=== PATIENT | female | born 1945 | race Caucasian/White ===

== ENCOUNTER → 2019-12-21 09:17 | Outpatient (BNVA) | payer MEDICARE, SELFPAY | PROVIDERS: PCP Physician Assistant; Referring Provider Physician Assistant; Visit Provider Internal Medicine | DX: J44.9 Chronic obstructive pulmonary disease, unspecified (principal); R09.02 Hypoxemia | CPT/HCPCS: 99212 ==

== ENCOUNTER → 2020-01-20 15:01 | Outpatient (BNVA) | payer MEDICARE, SELFPAY | PROVIDERS: PCP Physician Assistant; Visit Provider Internal Medicine | DX: J41.0 Simple chronic bronchitis (principal); F17.210 Nicotine dependence, cigarettes, uncomplicated; Z79.899 Other long term (current) drug therapy; Z99.81 Dependence on supplemental oxygen | CPT/HCPCS: Q3014 ==

== ENCOUNTER 2020-03-03 08:56 | Outpatient (REF) | payer MEDICARE, SELFPAY ==
[2020-03-03 11:27] LABS: MANUAL DIFF FLAG NO
[2020-03-03 11:49] LABS: Basophils Percent Auto 0.5 % (0-2); Eosinophils Absolute Auto 0.1 X10*3/uL (0.0-0.4); Eosinophils Percent Auto 0.9 % (0-4); Hematocrit 43.6 % (37-47); Hemoglobin 14.2 g/dl (12.0-16.0); Imm Gran Abs Auto 0.04 X10*3/uL (0.00-0.03); Imm Gran Pct Auto 0.5 % (0.0-0.4); Lymphocytes Absolute Auto 1.9 X10*3/uL (1.2-4.9); Lymphocytes Percent Auto 23.6 % (20-40); Mean Corpuscular HGB Conc 32.6 g/dl (31.0-35.0); Mean Corpuscular Hemoglobin 32.4 pg (27.0-33.0); Mean Corpuscular Volume 99.5 fL (80-98); Mean Platelet Volume 9.1 fL (9.4-12.3); Monocytes Absolute Auto 0.5 X10*3/uL (0.1-1.2); Monocytes Percent Auto 6.7 % (2-11); Neutrophils Absolute Auto 5.5 X10*3/uL (2.0-8.3); Neutrophils Percent Auto 67.8 % (45-73); Platelet Count 258 X10*3/uL (160-400); Red Blood Count 4.38 X10*6/uL (4.20-5.50); Red Cell Distribution Width 11.7 % (11.0-16.0); White Blood Count 8.1 X10*3/uL (4.8-10.8)
[2020-03-03 12:22] LABS: Alanine Aminotransferase 21 U/L (0-31); Albumin Level 4.6 g/dL (3.5-5.0); Alkaline Phosphatase 99 U/L (39-117); Anion Gap 14 (12-20); Aspartate Amino Transferase 21 U/L (5-31); Bilirubin Total 0.5 mg/dL (0.0-1.0); Blood Urea Nitrogen 10 mg/dL (9-16); Calcium 9.1 mg/dL (8.4-10.2); Carbon Dioxide 32 mmol/L (22-29); Chloride 93 mmol/L (96-108); Cholesterol 177 mg/dL; Estimated Glomerular Filt Rate > 60; Glucose Fasting 122 mg/dL (60-99); HDL Cholesterol 81 mg/dL; LDL Cholesterol Calculated 83 mg/dl; Potassium 4.4 mmol/l (3.3-5.1); Sodium 135 mmol/L (135-145); Total Protein 7.5 g/dL (6.5-8.0); Triglycerides 67 mg/dL
== END 2020-03-03 08:57 | disposition home or self-care (01) ==
LOC: HO.HMGCLDS 08:56
PROVIDERS: PCP Physician Assistant; Visit Provider Physician Assistant
DX: I10 Essential (primary) hypertension (principal); D17.1 Benign lipomatous neoplasm of skin and subcutaneous tissue of trunk
CPT/HCPCS: 36415; 80053; 80061; 85025

== ENCOUNTER → 2020-03-22 09:48 | Outpatient (BNVA) | payer MEDICARE, SELFPAY | PROVIDERS: PCP Physician Assistant; Visit Provider Surgery | DX: L72.0 Epidermal cyst (principal) | CPT/HCPCS: 99202 ==

== ENCOUNTER 2020-03-29 13:19 | Outpatient (REF) | payer MEDICARE, SELFPAY ==
[2020-03-29 13:26] VITALS: BP 157/80; PULSE 95; RESP 24; TEMP 36.9; O2SAT 97
[2020-03-29 13:30] VITALS: BMI 30.2
[2020-03-29 14:41] VITALS: BP 161/85; PULSE 65; RESP 24; O2SAT 96
--- NOTE | 2020-03-29 14:44 | P.OP_ITS ---
Operative Note Operative Note Date of Service: 03/29/20 Narrative: Preop diagnosis: Epidermal cyst x2 on the back Postop diagnosis: The same Procedure done: Excision of epidermal cyst x2 on the back Surgeon: George Suarez MD The patient is a 75-year-old female referred to me in the office for epidermal cysts on the back. She had 2 cysts, one about 2 cm in size and the other about 3 cm in size on the upper back. She wanted to proceed with excision. She understood the technique of excision under local anesthesia. He was aware of the risks, benefits, and alternatives. She was brought to the minor procedure room and placed in prone position. The area of the cysts were prepped and draped. Lidocaine 1% was used for local anesthesia. I made an incision on the skin transversely overlying the cyst on the upper back near the midline using a blade 15. This was carried down to full- thickness of the skin and subcutaneous fat until the cyst capsule was c visualized. I sharply dissected the cyst capsule off of the rest of subcutaneous layer circumferentially with Metzenbaum scissors as well as the blade 15 until it was completely delivered. This was sent as a specimen. This cyst was about 3 cm in diameter. I irrigated the area of excision and closed the incision with full-thickness nylon 3 -0 interrupted sutures. I then proceeded to infiltrate the area of the 2nd cyst which was a little more to the left. This incision was made using blade 15. I carried down the incision through the full-thickness of the skin and subcutaneous fat until the cyst capsule was visualized. I sharply dissected the cyst capsule off of the subcutaneous layer circumferentially using blade 15 with Metzenbaum scissors until this was delivered and this was sent as specimen. This cyst was about 2 cm in diameter. I closed the incision with full-thickness nylon 3-0 interrupted sutures. Dressings were then applied on both excision sites. The patient tolerated well. No complication noted. Estimated blood loss was about 1 cc. The patient was discharged from the minor procedure room and was given wound care instructions. She will see me in the office for a follow-up to remove the sutures in about 2 weeks.
== END 2020-03-29 13:20 | disposition home or self-care (01) ==
LOC: HO.MS 13:19
PROVIDERS: PCP Physician Assistant; Visit Provider Surgery
PROC: (CPT 11403; principal; 2020-03-29 13:40)
DX: L72.0 Epidermal cyst (principal); J44.9 Chronic obstructive pulmonary disease, unspecified; F17.210 Nicotine dependence, cigarettes, uncomplicated; Z88.1 Allergy status to other antibiotic agents
CPT/HCPCS: 11403 ×2; 88304

== ENCOUNTER → 2020-04-12 09:59 | Outpatient (BNVA) | payer MEDICARE, SELFPAY | PROVIDERS: PCP Physician Assistant; Visit Provider Surgery | DX: Z48.817 Encounter for surgical aftercare following surgery on the skin and subcutaneous tissue (principal); Z87.2 Personal history of diseases of the skin and subcutaneous tissue | CPT/HCPCS: 99212 ==

== ENCOUNTER → 2020-04-19 09:24 | Outpatient (BNVA) | payer MEDICARE, SELFPAY | PROVIDERS: PCP Physician Assistant; Visit Provider Internal Medicine | DX: J41.0 Simple chronic bronchitis (principal); J30.9 Allergic rhinitis, unspecified; R09.02 Hypoxemia; F17.200 Nicotine dependence, unspecified, uncomplicated; Z71.6 Tobacco abuse counseling; Z79.51 Long term (current) use of inhaled steroids | CPT/HCPCS: 99212 ==

== ENCOUNTER 2020-05-17 07:45 | Outpatient (REF) | payer MEDICARE, SELFPAY ==
--- NOTE | ~2020-05-17 | US_ITS ---
EXAMINATION: US ABDOMEN COMPLETE CLINICAL INFORMATION: Abdominal pain. COMPARISON: Ultrasound abdominal aorta 10/08/2019 and 10/22/2018. X-ray abdomen 03/23/2019. CT abdomen 09/08/2017. X-ray KUB 09/08/2017. TECHNIQUE: Real-time imaging of the abdominal viscera. FINDINGS: PANCREAS: Not well visualized. The main pancreatic duct is upper normal in size measuring 3 mm. ABDOMINAL AORTA: There is evidence of atherosclerotic disease. There are 2 areas of ectasia of the distal abdominal aorta measuring maximum 2.6 x 3.2 cm. INFERIOR VENA CAVA: Normal. LIVER: Normal. The liver is normal in size. The liver contour is normal. Parenchymal echogenicity is normal. No focal hepatic lesion. There is no intrahepatic biliary duct dilatation seen. GALLBLADDER: Gallbladder is normal in size. There is echogenic bile seen in the gallbladder. No gallstones are seen. Gallbladder wall is normal. There is no pericholecystic fluid. COMMON BILE DUCT: Normal in caliber measuring 0.2 cm in diameter. RIGHT KIDNEY: There are multiple cysts, largest a complex cyst in the midpole with several septations measuring 2.6 x 2.2 x 2.5 cm. No hydronephrosis or renal calculi. The kidney measures 11.1 cm in maximum dimension. LEFT KIDNEY: There are multiple cysts. Largest measures 2.7 x 2.2 x 2.5 cm in the lower pole and is slightly complex with small focus of wall calcification thickening. No hydronephrosis or renal calculi. The kidney measures 11.6 cm in maximum dimension. SPLEEN: Normal. The spleen measures 10.2 cm in maximum dimension. FREE FLUID: None. US/US abdomen complete IMPRESSION: Bilateral renal cysts. Limited visualization of the pancreas. Atherosclerotic disease with mild dilatation of the distal abdominal aorta.
== END 2020-05-17 07:46 | disposition home or self-care (01) ==
LOC: HO.US 07:45
PROVIDERS: Visit Provider Internal Medicine
DX: R10.13 Epigastric pain (principal)
CPT/HCPCS: 76700

== ENCOUNTER 2020-10-10 07:01 | Outpatient (REF) | payer MEDICARE, SELFPAY ==
[2020-10-10 11:44] LABS: Hematocrit 41.5 % (37-47); Hemoglobin 13.2 g/dl (12.0-16.0); Mean Corpuscular HGB Conc 31.8 g/dl (31.0-35.0); Mean Corpuscular Hemoglobin 32.3 pg (27.0-33.0); Mean Corpuscular Volume 101.5 fL (80-98); Mean Platelet Volume 9.2 fL (9.4-12.3); Platelet Count 266 X10*3/uL (160-400); Red Blood Count 4.09 X10*6/uL (4.20-5.50); Red Cell Distribution Width 11.9 % (11.0-16.0); White Blood Count 9.8 X10*3/uL (4.8-10.8)
[2020-10-10 12:14] LABS: Creatinine Urine 83.09 mg/dL; Microalbum/Creatinine Ratio Ur 51.7 ug/mg cr
[2020-10-10 12:44] LABS: Alanine Aminotransferase 16 U/L (0-31); Albumin Level 4.3 g/dL (3.5-5.0); Alkaline Phosphatase 81 U/L (39-117); Anion Gap 11 (12-20); Aspartate Amino Transferase 17 U/L (5-31); Bilirubin Total 0.7 mg/dL (0.0-1.0); Blood Urea Nitrogen 9 mg/dL (9-16); Calcium 8.8 mg/dL (8.4-10.2); Carbon Dioxide 34 mmol/L (22-29); Chloride 96 mmol/L (96-108); Cholesterol 153 mg/dL; Estimated Glomerular Filt Rate > 60; Glucose Fasting 102 mg/dL (60-99); HDL Cholesterol 75 mg/dL; LDL Cholesterol Calculated 63 mg/dl; Potassium 4.3 mmol/L (3.3-5.1); Sodium 137 mmol/L (135-145); Total Protein 6.9 g/dL (6.5-8.0); Triglycerides 78 mg/dL
[2020-10-10 14:25] LABS: Estimated Average Glucose 120 mg/dL; Hemoglobin A1c % 5.8 %
== END 2020-10-10 07:02 | disposition home or self-care (01) ==
LOC: HO.HMGCLDS 07:01
PROVIDERS: PCP Physician Assistant; Visit Provider Physician Assistant
DX: I10 Essential (primary) hypertension (principal); E78.00 Pure hypercholesterolemia, unspecified
CPT/HCPCS: 36415; 80053; 80061; 82043; 83036; 84443; 85027

== ENCOUNTER → 2020-10-23 09:20 | Outpatient (BNVA) | payer MEDICARE, SELFPAY | PROVIDERS: PCP Physician Assistant; Visit Provider Internal Medicine | DX: J41.0 Simple chronic bronchitis (principal); J30.9 Allergic rhinitis, unspecified; R09.02 Hypoxemia; F17.210 Nicotine dependence, cigarettes, uncomplicated | CPT/HCPCS: 99212 ==

== ENCOUNTER → 2020-12-06 10:20 | Outpatient (BNVA) | payer MEDICARE, SELFPAY | PROVIDERS: PCP Physician Assistant; Visit Provider Internal Medicine | DX: J41.0 Simple chronic bronchitis (principal); J30.9 Allergic rhinitis, unspecified; R09.02 Hypoxemia; F17.200 Nicotine dependence, unspecified, uncomplicated | CPT/HCPCS: 99212 ==

== ENCOUNTER 2020-12-13 09:38 | Day surgery (SDC) | payer MEDICARE, SELFPAY ==
[2020-12-07 09:18] VITALS: BMI 30.4
--- NOTE | 2020-12-12 13:28 | HO.ANESPROP2 ---
Documented by User: Taylor Maria NP 12/12/20 13:36 HPI - Anesthesia Eval Consult details Narrative: 75yo F for Upper Endoscopy and Colonoscopy O2 dep 1-2L/min Per pulmo, stable for colonscopy PMFSH Active Problems Active Problems: All Active Problems (Updated 12/06/20 @ 16:14 by Ivy Portillo, RN) Lipoma of back (Acute) HTN (hypertension) (Acute) Scalp itch (Acute) Otitis externa (Acute) Degenerative disc disease, lumbar (Acute) Colon cancer screening (Acute) Positive colorectal cancer screening using Cologuard test (Acute) Lumbar disc disease (Acute) Smoker (Acute) Allergic rhinitis (Acute) High cholesterol (Acute) Intertrigo (Acute) Epidermal cyst (Acute) Exercise hypoxemia (Acute) COPD (chronic obstructive pulmonary disease) (Acute) Past Medical History Medical History AAA (abdominal aortic aneurysm) Allergic rhinitis Anxiety COPD (chronic obstructive pulmonary disease) Epidermal cyst Exercise hypoxemia High cholesterol HTN (hypertension) Intertrigo Neck pain Oxygen dependent Smoker Family History Family History Father Stroke Mother Stroke Brother Colon cancer Sister Diabetes High cholesterol Surgical History Surgical History (Updated 12/06/20 @ 16:14 by Ivy Portillo RN) History of bilateral cataract extraction History of esophagogastroduodenoscopy (EGD) History of hemorrhoidectomy Hx of colonoscopy Social History Social History Are you a primary physician primary care sports medicine to a significant other at home: No Do you presently have visiting nurse or other home services: No Alcohol intake: never Patient Tobacco Use Status: Current everyday Tobacco user Tobacco use type: Cigarette Cigarette Packs Per Day: 0.5 Cigarettes Per Day: 10.0 Years Smoked: ~ 50 Smoked in Last 30 Days: Yes Patient Interested in Nicotine Replacement: No Patient Given Instructions on How to Stop Smoking: No Second Hand Smoke Exposure: No Use of substances other than those prescribed or required for medical reasons: No Have you been hit, kicked, punched, or otherwise hurt by someone within the past year? If so, by whom?: No Are you DNR?: No Advance Directives: Yes Advance Directives Information Provided: Yes Advance Directives on File: Yes Advance Directives Date on File: 03/29/20 Recently lost weight without trying: No Eating poorly because of decreased appetite: No Nutrition Risks: No Nutritional Risk Patient : No Meds Allergies Allergy/AdvReac Type Severity Reaction Status Date / Time erythromycin base Allergy Severe Rash Verified 12/06/20 16:20 azithromycin AdvReac Severe Nausea Verified 12/06/20 16:20 Home Medications Medication Instructions Recorded Confirmed Last Taken Type cetirizine 10 mg tablet (Zyrtec) 10 mg PO DAILY 12/07/20 12/07/20 Unknown History Exam Exam Date and Time: December 12, 2020 1328 Height,Weight and Vital Signs: Height 5 ft Weight 70.76 kg Pertinent Lab Results Pertinent Lab Results: Laboratory Tests 10/10/20 10/10/20 07:08 07:08 WBC 9.8 Hgb 13.2 Hct 41.5 Plt Count 266 Sodium 137 Potassium 4.3 Chloride 96 Carbon Dioxide 34 H BUN 9 Creatinine 0.60 Narrative Narrative: US abdomen complete 05/2020 IMPRESSION: Bilateral renal cysts. Limited visualization of the pancreas. Atherosclerotic disease with mild dilatation of the distal abdominal aorta. Assessment and Plan Assessment Anesthesia Assessment: Chart Reviewed Documented by User: Sonya Johnson MD 12/13/20 11:19 [facility] Past Medical History Medical History AAA (abdominal aortic aneurysm) Allergic rhinitis Anxiety COPD (chronic obstructive pulmonary disease) Epidermal cyst Exercise hypoxemia High cholesterol HTN (hypertension) Intertrigo Neck pain Oxygen dependent Smoker Functional capacity: independent ambulation Patient : No Family History Family History Father Stroke Mother Stroke Brother Colon cancer Sister Diabetes High cholesterol Family history of problems with anesthesia: No Surgical History Surgical History (Updated 12/06/20 @ 16:14 by Ivy Portillo RN) History of bilateral cataract extraction History of esophagogastroduodenoscopy (EGD) History of hemorrhoidectomy Hx of colonoscopy History of Problems with Anesthesia: No Social History Social History Are you a primary physician primary care sports medicine to a significant other at home: No Do you presently have visiting nurse or other home services: No Alcohol intake: never Patient Tobacco Use Status: Current everyday Tobacco user Tobacco use type: Cigarette Cigarette Packs Per Day: 0.5 Cigarettes Per Day: 10.0 Years Smoked: ~ 50 Smoked in Last 30 Days: Yes Patient Interested in Nicotine Replacement: No Patient Given Instructions on How to Stop Smoking: No Second Hand Smoke Exposure: No Use of substances other than those prescribed or required for medical reasons: No Have you been hit, kicked, punched, or otherwise hurt by someone within the past year? If so, by whom?: No Are you DNR?: No Advance Directives: Yes Advance Directives Information Provided: Yes Advance Directives on File: Yes Advance Directives Date on File: 03/29/20 Recently lost weight without trying: No Eating poorly because of decreased appetite: No Nutrition Risks: No Nutritional Risk Patient : No Meds Allergies Allergy/AdvReac Type Severity Reaction Status Date / Time erythromycin base Allergy Severe Rash Verified 12/06/20 16:20 azithromycin AdvReac Severe Nausea Verified 12/06/20 16:20 Home Medications Medication Instructions Recorded Confirmed Last Taken Type cetirizine 10 mg tablet (Zyrtec) 10 mg PO DAILY 12/07/20 12/07/20 Unknown History Exam Airway Mallampati Class: II TM Dist: >3cm Neck ROM: Full Denture: Upper and Lower Heart: RRR Lungs: left little Assessment and Plan Final Anesthetic Review Family History of Problems with Anesthesia: No History of Problems with Anesthesia: No ASA Class: III Final Preanesthetic Review: No Changes in Pt Med Stat Patient Risk: Low Procedure Risk: Low Anesthetic Plan Anesthetic Plan: MAC: Disposition: Standard PACU
[2020-12-13 09:56] VITALS: BP 174/81; PULSE 96; RESP 18; TEMP 36.6; O2SAT 92
--- NOTE | 2020-12-13 10:18 | PC.NURSE ---
yellow results from [facility]
[2020-12-13] MEDS: Lactated Ringers 1,000 ML 50 ML IVCONT (10:35)
[2020-12-13] MEDS: Sodium Phosphate,Mono-Dibasic 133 ML ENEMA PR (10:35)
--- NOTE | 2020-12-13 11:27 | PC.NURSE ---
ls clear diminished at the bases nonproductive cough no sob noted pt on 1liter n/c aware of plan of care
[2020-12-13 12:51] VITALS: BP 160/70; PULSE 104; RESP 12; TEMP 37.2; O2SAT 93
--- NOTE | 2020-12-13 13:01 | PM.OP ---
Brief Operative Note Date of Service: 12/13/20 Pre-op diagnosis: Abdominal discomfort, + Cologuard Post-op diagnosis: other (Duodenitis, Gastritis, Hiatal hernia, R/O Ecahvarria's, Diverticulosis, Int/Ext Hemorrhoids) Procedure: EGD with biopsies, Colonoscopy to the cecum and TI Surgeon: Holland Herrera Anesthesia: MAC Was an Tower Air Traffic Control Specialist used for this Procedure?: No Estimated blood loss (mL): 3.0 Pathology: other (A. Gastric antrum B. EG Junction at 34cm) Condition: stable Disposition: PACU
[2020-12-13 13:06] VITALS: BP 161/62; PULSE 101; RESP 18; O2SAT 95
--- NOTE | 2020-12-13 14:28 | OP_ITS ---
SURGEON: Holland Herrera MD INDICATIONS: The patient presents for evaluation of abdominal discomfort and positive Cologuard test. Full consent has been obtained from her for both procedures, including risks of bleeding and perforation. PREOPERATIVE DIAGNOSIS: POSTOPERATIVE DIAGNOSIS: PROCEDURE PERFORMED: Esophagogastroduodenoscopy with biopsies, and colonoscopy to the cecum and terminal ileum. ESTIMATED BLOOD LOSS: COMPLICATIONS: ANESTHESIA: Monitored anesthesia care. ASSISTANTS: SPECIMENS: PREOPERATIVE DIAGNOSES: Abdominal pain and positive Cologuard test. POSTOPERATIVE DIAGNOSES: Abdominal pain and positive Cologuard test, hiatal hernia, rule out Echavarria's esophagus, gastritis and duodenitis, diverticulosis, internal and external hemorrhoids, and colon polyps not removed nor biopsied. DESCRIPTION OF PROCEDURE: The patient was placed in the left lateral decubitus position. The Olympus video gastroscope was passed in the posterior oropharynx and upper esophagus under direct vision. The scope was passed slowly into the distal esophagus. The gastroesophageal junction appeared at 34 cm. At this level, was evidence of some changes consistent with Echavarria's esophagus with 1 or 2 cm long projections of Echavarria's appearing mucosa. There was no sign of any esophagitis, ulceration, nor mass. There was a moderate-sized hiatal hernia. The scope was advanced to pylorus and duodenum was cannulated the descending portion. The second and third portions of duodenum appeared normal. The duodenal bulb had some duodenitis with erosions. There was no ulceration nor mass. The scope was withdrawn back into the stomach. The gastric antrum had some areas of edema and erythema, but no erosions or ulceration. There was good peristalsis. Biopsies were obtained from the gastric antrum. The scope was retroflexed visualizing the proximal stomach carefully, which appeared normal, without any sign of mass or ulceration. The scope was straightened out and withdrawn back into the esophagus. Biopsies were obtained at 34 cm. Proximal to this, esophageal mucosa appeared normal. The scope was withdrawn from the patient. She was turned around for colonoscopy. The digital rectal exam revealed no abnormalities. The Olympus video pediatric colonoscope was entered into the rectum and advanced easily to the cecum. Once in the cecum, I did identify normal-appearing cecal pouch with appendiceal orifice and a normal-appearing ileocecal valve. The terminal ileum was cannulated and appeared normal. The scope was withdrawn back in the colon. The entire cecum and ileocecal valve appeared normal. The scope was then slowly withdrawn assessing all mucosal surfaces carefully. There was a fair amount of liquid stool in different parts of the colon, which were all irrigated and suctioned away resulting in a very good prep. I did visualize some small less than 10 mm polyps in various areas, which were not biopsied nor removed given her overall condition and age. I did not visualize any significant lesions whatsoever nor anything suspicious. There was a moderate amount of sigmoid diverticulosis. In the rectum, scope was retroflexed visualizing internal hemorrhoids. The scope was straightened out and withdrawn from the patient. Of note, she does have external hemorrhoids as well. The patient tolerated both procedures well and was returned to the recovery area in stable condition. IMPRESSION: 1. Hiatal hernia, gastroesophageal reflux, rule out Echavarria's esophagus. 2. Duodenitis and gastritis. 3. Diverticulosis. 4. Internal and external hemorrhoids. 5. Colon polyps, not resected nor biopsied. PLAN: The results of the biopsies will be checked. Given her endoscopic findings and symptoms, I shall start her on omeprazole 40 mg daily. Given her age and condition, I do not think she will need any further screening colonoscopies. She was advised to continue her bowel regimen so as to avoid constipation. She will see me again on a p.r.n. basis. MD MAMTA Brantley/STACY / [phone] MTDD
--- NOTE | 2020-12-13 15:11 | HO.POSTANES ---
Post Anesthesia Evaluation Post Anesthesia Evaluation Vital Signs: Vital Signs Temp Pulse Resp BP Pulse Ox 12/13/20 13:06 101 H 18 161/62 H 95 12/13/20 12:51 98.9 F 104 H 12 160/70 H 93 12/13/20 09:56 98 F 96 18 174/81 H 92 Anesthesia: Monitored Mental Status: Awake Pain Control: Satisfactory Nausea/Vomiting: None Hydration: Adequate Anesthesia-Related Issues: No Anes. Related Issues
== END 2020-12-13 13:55 | disposition home or self-care (01) ==
PROVIDERS: PCP Physician Assistant; Visit Provider Internal Medicine
PROC: (CPT 45378; principal; 2020-12-13 11:10)
DX: R19.5 Other fecal abnormalities (principal); Z80.0 Family history of malignant neoplasm of digestive organs; K63.5 Polyp of colon; K57.30 Diverticulosis of large intestine without perforation or abscess without bleeding; K64.8 Other hemorrhoids; K64.4 Residual hemorrhoidal skin tags; K29.50 Unspecified chronic gastritis without bleeding; K21.9 Gastro-esophageal reflux disease without esophagitis; K29.80 Duodenitis without bleeding; K44.9 Diaphragmatic hernia without obstruction or gangrene; I10 Essential (primary) hypertension; J44.9 Chronic obstructive pulmonary disease, unspecified; Z99.81 Dependence on supplemental oxygen; Z79.899 Other long term (current) drug therapy; F17.210 Nicotine dependence, cigarettes, uncomplicated
CPT/HCPCS: 45378; 43239; 88305; 88342

== ENCOUNTER 2021-01-19 07:21 | Outpatient (REF) | payer MEDICARE, SELFPAY ==
[2021-01-19 11:52] LABS: Hematocrit 41.5 % (37.0-47.0); Hemoglobin 13.1 g/dl (12.0-16.0); Mean Corpuscular HGB Conc 31.6 g/dl (31.0-35.0); Mean Corpuscular Hemoglobin 32.3 pg (27.0-33.0); Mean Corpuscular Volume 102.2 fL (80.0-98.0); Mean Platelet Volume 9.3 fL (9.4-12.3); Platelet Count 248 X10*3/uL (160-400); Red Blood Count 4.06 X10*6/uL (4.20-5.50); Red Cell Distribution Width 11.4 % (11.0-16.0); White Blood Count 7.6 X10*3/uL (4.8-10.8)
[2021-01-19 12:07] LABS: Alanine Aminotransferase 18 U/L (0-31); Albumin Level 4.4 g/dL (3.5-5.0); Alkaline Phosphatase 82 U/L (39-117); Anion Gap 14 (12-20); Aspartate Amino Transferase 22 U/L (5-31); Bilirubin Total 0.5 mg/dL (0.0-1.0); Blood Urea Nitrogen 6 mg/dL (9-16); Calcium 9.5 mg/dL (8.4-10.2); Carbon Dioxide 35 mmol/L (22-29); Chloride 95 mmol/L (96-108); Cholesterol 168 mg/dL; Estimated Glomerular Filt Rate > 60; Glucose Fasting 102 mg/dL (60-99); HDL Cholesterol 71 mg/dL; LDL Cholesterol Calculated 83 mg/dl; Potassium 4.3 mmol/L (3.3-5.1); Sodium 140 mmol/L (135-145); Total Protein 7.2 g/dL (6.5-8.0); Triglycerides 71 mg/dL
[2021-01-19 12:31] LABS: TSH reflex Free T4 0.49 uIU/mL (0.32-4.0)
== END 2021-01-19 07:22 | disposition home or self-care (01) ==
LOC: HO.HMGCLDS 07:21
PROVIDERS: PCP Physician Assistant; Visit Provider Physician Assistant
DX: I10 Essential (primary) hypertension (principal)
CPT/HCPCS: 36415; 80053; 80061; 84443; 85027

== ENCOUNTER → 2021-05-01 09:27 | Outpatient (BNVA) | payer MEDICARE, SELFPAY | PROVIDERS: PCP Physician Assistant; Visit Provider Internal Medicine | DX: J30.9 Allergic rhinitis, unspecified (principal); J41.0 Simple chronic bronchitis; R09.02 Hypoxemia; Z99.81 Dependence on supplemental oxygen | CPT/HCPCS: 99212 ==

== ENCOUNTER 2021-05-23 08:22 | Outpatient (REF) | payer MEDICARE, SELFPAY ==
[2021-05-23 11:34] LABS: Hematocrit 42.6 % (37.0-47.0); Hemoglobin 13.5 g/dl (12.0-16.0); Mean Corpuscular HGB Conc 31.7 g/dl (31.0-35.0); Mean Corpuscular Hemoglobin 32.5 pg (27.0-33.0); Mean Corpuscular Volume 102.4 fL (80.0-98.0); Mean Platelet Volume 9.2 fL (9.4-12.3); Platelet Count 255 X10*3/uL (160-400); Red Blood Count 4.16 X10*6/uL (4.20-5.50); Red Cell Distribution Width 11.4 % (11.0-16.0); White Blood Count 7.6 X10*3/uL (4.8-10.8)
[2021-05-23 12:02] LABS: Alanine Aminotransferase 19 U/L (0-31); Albumin Level 4.2 g/dL (3.5-5.0); Alkaline Phosphatase 85 U/L (39-117); Anion Gap 12 (12-20); Aspartate Amino Transferase 21 U/L (5-31); Bilirubin Total 0.6 mg/dL (0.0-1.0); Blood Urea Nitrogen 9 mg/dL (9-16); Calcium 9.2 mg/dL (8.4-10.2); Carbon Dioxide 33 mmol/L (22-29); Chloride 95 mmol/L (96-108); Cholesterol 163 mg/dL; Estimated Glomerular Filt Rate > 60; Glucose Fasting 108 mg/dL (60-99); HDL Cholesterol 71 mg/dL; LDL Cholesterol Calculated 77 mg/dl; Potassium 4.7 mmol/L (3.3-5.1); Sodium 135 mmol/L (135-145); Triglycerides 79 mg/dL
[2021-05-23 12:06] LABS: TSH reflex Free T4 0.56 uIU/mL (0.32-4.0)
[2021-05-23 12:11] LABS: Vitamin B12 223 pg/mL (200-900)
== END 2021-05-23 08:23 | disposition home or self-care (01) ==
LOC: HO.HMGCLDS 08:22
PROVIDERS: Visit Provider Physician Assistant
DX: I10 Essential (primary) hypertension (principal); D75.89 Other specified diseases of blood and blood-forming organs
CPT/HCPCS: 36415; 80053; 80061; 82607; 82746; 84443; 85027

== ENCOUNTER → 2021-11-06 09:14 | Outpatient (BNVA) | payer MEDICARE, SELFPAY | PROVIDERS: PCP Physician Assistant; Visit Provider Internal Medicine | DX: J41.0 Simple chronic bronchitis (principal); R09.02 Hypoxemia; F17.210 Nicotine dependence, cigarettes, uncomplicated | CPT/HCPCS: 99212 ==

== ENCOUNTER → 2022-05-14 09:19 | Outpatient (BNVA) | payer MEDICARE, SELFPAY | PROVIDERS: PCP Physician Assistant; Visit Provider Internal Medicine | DX: J41.0 Simple chronic bronchitis (principal); R09.02 Hypoxemia; J30.9 Allergic rhinitis, unspecified; F17.210 Nicotine dependence, cigarettes, uncomplicated | CPT/HCPCS: 99212 ==

== ENCOUNTER 2022-05-24 08:35 | Outpatient (REF) | payer MEDICARE, SELFPAY ==
[2022-05-24 12:08] LABS: Hematocrit 41.5 % (37.0-47.0); Hemoglobin 13.2 g/dl (12.0-16.0); Mean Corpuscular HGB Conc 31.8 g/dl (31.0-35.0); Mean Corpuscular Hemoglobin 32.8 pg (27.0-33.0); Mean Platelet Volume 9.5 fL (9.4-12.3); Platelet Count 237 X10*3/uL (160-400); Red Blood Count 4.03 X10*6/uL (4.20-5.50); Red Cell Distribution Width 11.7 % (11.0-16.0); White Blood Count 6.7 X10*3/uL (4.8-10.8)
[2022-05-24 12:18] LABS: Alanine Aminotransferase 12 U/L (0-31); Albumin Level 4.2 g/dL (3.5-5.0); Alkaline Phosphatase 94 U/L (39-117); Anion Gap 11 (12-20); Aspartate Amino Transferase 17 U/L (5-31); Bilirubin Total 0.5 mg/dL (0.0-1.0); Blood Urea Nitrogen 11 mg/dL (9-16); Calcium 9.3 mg/dL (8.4-10.2); Carbon Dioxide 37 mmol/L (22-29); Chloride 96 mmol/L (96-108); Cholesterol 180 mg/dL; Estimated Glomerular Filt Rate > 60; Glucose Fasting 119 mg/dL (60-99); HDL Cholesterol 80 mg/dL; LDL Cholesterol Calculated 90 mg/dl; Potassium 4.3 mmol/L (3.3-5.1); Sodium 140 mmol/L (135-145); Total Protein 6.8 g/dL (6.5-8.0); Triglycerides 51 mg/dL
[2022-05-24 12:41] LABS: Creatinine Urine 98.87 mg/dL; Microalbum/Creatinine Ratio Ur 68.7 ug/mg cr
== END 2022-05-24 08:36 | disposition home or self-care (01) ==
LOC: HO.HMGCLDS 08:35
PROVIDERS: PCP Physician Assistant; Visit Provider Physician Assistant
DX: E78.00 Pure hypercholesterolemia, unspecified (principal); I10 Essential (primary) hypertension
CPT/HCPCS: 36415; 80053; 80061; 82043; 85027

== ENCOUNTER 2022-11-12 09:02 | Outpatient (AMB) | payer MEDICARE, SELFPAY ==
[2022-11-12 09:14] VITALS: BP 160/62; PULSE 87; O2SAT 93; BMI 29.7
--- NOTE | 2022-11-12 09:14 | A.OFFVIS_ITS ---
Intake Vital Signs 11/12/22 09:14 Height 5 ft Weight 152 lb BMI 29.7 BP 160/62 H Blood Pressure Location Lt brachial Position Sitting Pulse 87 Pulse Source Pulse Oximeter Pulse Oximetry (%) 93 Oxygen Delivery Method Nasal Cannula Oxygen Flow Rate 1 Intake Visit Reasons: COPD follow-up Intake Note: pt is here for follow up and states she is doing okay some phelgm. Hand Singer Required: No Allergies erythromycin base Allergy (Severe, Verified 11/12/22 09:25) Rash azithromycin Adverse Reaction (Severe, Verified 11/12/22 09:25) Nausea omeprazole Adverse Reaction (Intermediate, Verified 11/12/22 09:25) balance issues / dizziness Medication List - Last Reconciled 11/12/22 by Sherley Mancini MD carisoprodol (Soma) 350 mg PO TID PRN 30 days cetirizine (Zyrtec) 10 mg PO DAILY lisinopril 20 mg PO DAILY 90 days simvastatin 40 mg PO QPM Ventolin HFA 90 mcg/actuation (albuterol sulfate) 2 puffs inhalation Q4-6H PRN NS Do you need a note to return to daycare/school/sports/work: No HPI COPD follow-up HPI Details This 77 years old female with COPD and persistent smoking, being treated for hypoxemia on continuous, O2 2 L/minute comes after 6 months for follow-up. She has remained quite stable. Has used Ventolin only about 2 or 3 times in the last 6 months. Smokes 10 cigarettes a day, Gets short of breath on minimal exertion so she stays mostly in the house. She does drive the car just to go to local stores. She gets nasal congestion and increased cough only in response to change in the weather and outside allergies. Luckily she has had no infection. [facility] Medical History Oxygen dependent AAA (abdominal aortic aneurysm) Anxiety Neck pain HTN (hypertension) Smoker Allergic rhinitis High cholesterol Intertrigo Epidermal cyst Exercise hypoxemia COPD (chronic obstructive pulmonary disease) Surgical History History of esophagogastroduodenoscopy (EGD) Hx of colonoscopy History of bilateral cataract extraction History of hemorrhoidectomy Family History Father Stroke Mother Stroke Brother Colon cancer Sister Diabetes High cholesterol Social History Housing: House Are you a primary health care coordinator to a significant other at home: No Do you presently have visiting nurse or other home services: No Alcohol intake: never Patient Tobacco Use Status: Current everyday Tobacco user Tobacco use type: Cigarette Cigarette Packs Per Day: 0.5 Cigarettes Per Day: 10.0 Years Smoked: ~ 50 e-Cigarette/Vaping Use: Never Used Second Hand Smoke Exposure: No Advance Directives Date on File: 03/29/20 Current occupational status: disabled Cognitive needs: No Hearing needs: Yes (bilateral hearing loss) Vision needs: No Review of Systems Const All systems reviewed & are unremarkable except as noted in HPI and below Eyes Reports no additional complaints ENT Reports nasal congestion (Mild intermittent) and Reports nasal discharge Card Reports no additional complaints Resp Reports as per HPI GI Reports no additional complaints Reports no additional complaints Musc Reports back pain (Mild chronic) Skin/Breast Reports system reviewed and no additional complaints, except as documented Neuro Reports no additional complaints Psych Reports no additional complaints Physical Exam Const General: comfortable, no acute distress, alert and awake Orientation/consciousness: patient oriented x3 HEENT Head: Yes normal to inspection General nose exam: No nasal polyps present and No nasal discharge present Face and sinus: Yes sinuses nontender Mouth: oropharynx normal Throat: Yes posterior oropharynx normal Eyes General: appearance normal, both eyes and all related structures Neck Neck: Yes normal visual inspection, Yes no lymphadenopathy, Yes trachea midline and Yes no JVD Thyroid: Thyroid normal Chest Chest palpation & inspection: normal inspection of the chest, normal palpation of entire chest wall and no tenderness Resp Other: Percussion note resonant, breath sounds are distant but equal on both sides. No wheezes rhonchi or crepitations are heard on either side. Cardio Palpation: normal PMI Rate: regular rate Rhythm: regular rhythm Heart sounds: no gallops and no murmurs GI Palpation (GI): Soft to palpation, nontender, No hepatosplenomegaly present and no masses Auscultation: normal bowel sounds Back/Spine/Pelvis Thoracic/Lumbar Spine: thoracic and lumbar spine normal to inspection and thoraco-lumbar ROM limited Skin General skin exam: no rashes or lesions noted Neuro General: patient oriented x3 and no focal motor deficits Cranial nerves: Yes CN's II-XII intact bilaterally Extrem General: Yes normal to inspection, Yes no clubbing, cyanosis or edema and Yes no calf tenderness Psych Appearance: grossly normal and well kempt Speech and movement: Normal speech and movement present Results Reviewed Results Reviewed: SPIROMETRY FVC FEV1 FEV1/FVC FEF 25-75 11/06/21 73 % 54 % 57 30 % 11/12/22 65 53 63 34 Assessment & Plan Assessment & Plan (1) COPD (chronic obstructive pulmonary disease): Comment: COPD, MODERATELY SEVERE , STABLE , AND WELL CONTROLLED. ADVISED, TO USE VENTOLIN HFA 2 PUFFS Q.6 HOURS P.R.N.. * PATIENT DOES NOT WANT TO USE ANY LONG-ACTING BDOR ICS INHALERS Code(s): J44.9 - Chronic obstructive pulmonary disease, unspecified Qualifiers: COPD type: chronic bronchitis Chronic bronchitis type: simple Qualified Code(s): J41.0 - Simple chronic bronchitis (2) Exercise hypoxemia: Comment: SHE HAS DOCUMENTED HYPOXEMIA ON WALKING. SHE DOES WELL WITH THE OXYGEN SUPPLEMENTATION. TX: OKAY TO USE 1 L/MINUTE WHEN RESTING AT HOME AND DURING SLEEP, AND 2 L/MINUTE WHEN WALKING OUTDOORS. Code(s): R09.02 - Hypoxemia (3) Allergic rhinitis: Comment: SHE HAS CHRONIC SEASONAL RHINITIS WHICH FLARES UP EVERY NOW AND THEN. TX : USE ZYRTEC 10 MG ONCE A DAY ONLY P.R.N.. Code(s): J30.9 - Allergic rhinitis, unspecified (4) Smoker: Comment: SHE IS A [employer], UNABLE TO QUIT COMPLETELY , STILL SMOKED 10 CIGARETTES A DAY. DOES NOT WANT TO GO FOR ANNUAL SCREENING , SHE DOESN NOT WANT ANY ACTIVE TREATMENT EVEN IF SHE HAS CANCER . SAYS DON,T WASTE YOUR TIME IN COUNSELLING ME Code(s): F17.200 - Nicotine dependence, unspecified, uncomplicated Coding Level of Care Code Est Pt Level 3 (23480) Diagnoses Simple chronic bronchitis J41.0 COPD type: chronic bronchitis Chronic bronchitis type: simple Exercise hypoxemia R09.02 Allergic rhinitis J30.9 Smoker F17.200
== END 2022-11-12 09:41 | disposition home or self-care (01) ==
PROVIDERS: PCP Physician Assistant; Visit Provider Internal Medicine
DX: J41.0 Simple chronic bronchitis (principal); R09.02 Hypoxemia; J30.9 Allergic rhinitis, unspecified; F17.200 Nicotine dependence, unspecified, uncomplicated
CPT/HCPCS: 99213

== ENCOUNTER → 2022-11-12 09:02 | Outpatient (BNVA) | payer MEDICARE, SELFPAY | PROVIDERS: Visit Provider Internal Medicine | DX: J41.0 Simple chronic bronchitis (principal); R09.02 Hypoxemia; J30.9 Allergic rhinitis, unspecified; F17.210 Nicotine dependence, cigarettes, uncomplicated | CPT/HCPCS: 99212 ==

== ENCOUNTER 2022-12-04 08:08 | Outpatient (REF) | payer MEDICARE, SELFPAY ==
[2022-12-04 12:08] LABS: Hematocrit 36.5 % (37.0-47.0); Hemoglobin 11.4 g/dl (12.0-16.0); Mean Corpuscular HGB Conc 31.2 g/dl (31.0-35.0); Mean Corpuscular Hemoglobin 30.6 pg (27.0-33.0); Mean Corpuscular Volume 98.1 fL (80.0-98.0); Mean Platelet Volume 9.1 fL (9.4-12.3); Platelet Count 291 X10*3/uL (160-400); Red Blood Count 3.72 X10*6/uL (4.20-5.50); Red Cell Distribution Width 11.4 % (11.0-16.0); White Blood Count 7.6 X10*3/uL (4.8-10.8)
[2022-12-04 12:16] LABS: Estimated Average Glucose 123 mg/dL; Hemoglobin A1c % 5.9 % (<6.0)
[2022-12-04 12:33] LABS: Alanine Aminotransferase 14 U/L (0-31); Albumin Level 4.3 g/dL (3.5-5.0); Alkaline Phosphatase 79 U/L (39-117); Anion Gap 15 (12-20); Aspartate Amino Transferase 20 U/L (5-31); Bilirubin Total 0.4 mg/dL (0.0-1.0); Blood Urea Nitrogen 9 mg/dL (9-16); Calcium 9.5 mg/dL (8.4-10.2); Carbon Dioxide 33 mmol/L (22-29); Chloride 94 mmol/L (96-108); Cholesterol 182 mg/dL (<200); Estimated Glomerular Filt Rate > 60; Glucose Fasting 130 mg/dL (60-99); HDL Cholesterol 89 mg/dL (>40); LDL Cholesterol Calculated 81 mg/dL (<100); Potassium 4.1 mmol/L (3.3-5.1); Sodium 138 mmol/L (135-145); Total Protein 7.4 g/dL (6.5-8.0); Triglycerides 62 mg/dL (<150)
== END 2022-12-04 08:09 | disposition home or self-care (01) ==
LOC: HO.HMGCLDS 08:08
PROVIDERS: PCP Physician Assistant; Visit Provider Physician Assistant
DX: I10 Essential (primary) hypertension (principal); R73.09 Other abnormal glucose
CPT/HCPCS: 36415; 80053; 80061; 83036; 85027

== ENCOUNTER 2022-12-16 10:39 | Outpatient (AMB) | payer MEDICARE, SELFPAY ==
[2022-12-16 10:40] VITALS: BP 126/67; PULSE 79; BMI 29.5
--- NOTE | 2022-12-16 10:40 | MHC.PC.OV ---
Vital Signs 12/16/22 10:40 Height 5 ft Weight 151 lb BMI 29.5 BP 126/67 Blood Pressure Location Rt brachial Position Sitting Pulse 79 Intake Visit Reasons: f/u HTN/ COPD Intake Note: Follow-up telehealth consultation with a patient regarding hypertension (HTN) and chronic obstructive pulmonary disease (COPD). The patient has discontinued their iron medication and intends to have a discussion with their primary care physician (PCP) regarding this change. Medical Record Transcriber Required: No Accompanied by: Self / Same As Patient Allergies erythromycin base Allergy (Severe, Verified 12/16/22 11:06) Rash azithromycin Adverse Reaction (Severe, Verified 12/16/22 11:06) Nausea omeprazole Adverse Reaction (Intermediate, Verified 12/16/22 11:06) balance issues / dizziness Medication List - Last Reconciled 12/16/22 by Michael Curiel PA-C carisoprodol (Soma) 350 mg PO TID PRN 30 days cetirizine (Zyrtec) 10 mg PO DAILY lisinopril 20 mg PO DAILY 90 days simvastatin 40 mg PO QPM Ventolin HFA 90 mcg/actuation (albuterol sulfate) 2 puffs inhalation Q4-6H PRN NS Tobacco use date assessed: 05/29/22 Fall risk assessment: 1 Fall in past year Last assessed Fall Risk: 12/16/22 Dental Screening Dental Screen Date: 12/16/22 Did you have a dental visit in the last 12 months?: No Did you have a dental problem in the last 6 months where you did not have access to dental care?: No Was dental information given to patient?: No (Pt has dentures) HPI f/u HTN/ COPD HPI Details Patient is a 77-year-old female being evaluated today via telephone. ?Patient has a past medical history significant for COPD, tobacco use disorder, degenerative disc disease in her lumbar spine, elevated cholesterol, hypertension. Lumbar spine pain: She does use Soma muscle relaxer on a p.r.n. basis with good effect on reducing her pain. She reports her pain gets worse during the cold winter months. .. HTN:?, she reports at home?her BP 122/80.? Denies any chest pain, palpitations or blurry vision. . Allergic rhinitis:? She does report over the last 6 weeks having intermittent headaches and nasal congestion.? She has been using [id number] allergy medication with some relief.? She uses intranasal ipratropium with good effect. . COPD:? followed by a prescription clerk lenses. On O2 continuously day and night. She reports her breathing has been stable, rarely has to use her rescue inhaler.? Unfortunately continues to smoke and does understand she needs to quit though is not willing to do so at this time. Reports she is smoking 3-4 cigs per day. .. Hyperlipidemia:? Continues on statin therapy without any side effect.? Most recent total cholesterol couple, LDL -90 Laboratory Tests 12/04/22 08:13 RBC 3.72 L Hgb 11.4 L Fasting Glucose 130 H Hemoglobin A1c % 5.9 Cholesterol 182 [facility] Medical History (Updated 12/16/22 @ 11:17 by Michael Curiel PA-C) Hiatal hernia Oxygen dependent AAA (abdominal aortic aneurysm) Anxiety Neck pain HTN (hypertension) Smoker Allergic rhinitis High cholesterol Intertrigo Epidermal cyst Exercise hypoxemia COPD (chronic obstructive pulmonary disease) Surgical History History of esophagogastroduodenoscopy (EGD) Hx of colonoscopy History of bilateral cataract extraction History of hemorrhoidectomy Family History Father Stroke Mother Stroke Brother Colon cancer Sister Diabetes High cholesterol Social History Housing: House Are you a primary healthcare corporate account director to a significant other at home: No Do you presently have visiting nurse or other home services: No Alcohol intake: never Patient Tobacco Use Status: Current everyday Tobacco user Tobacco use type: Cigarette Cigarette Packs Per Day: 0.5 Cigarettes Per Day: 10.0 Years Smoked: ~ 50 e-Cigarette/Vaping Use: Never Used Second Hand Smoke Exposure: No Advance Directives Date on File: 03/29/20 service: No Current occupational status: disabled Cognitive needs: No Hearing needs: Yes (bilateral hearing loss) Vision needs: No Questionnaire Thrive Questionnaire Date Thrive assessed: 05/29/22 MAGI-7 AMB Questionnaire MAGI-7 Date MAGI - 7 assessed: 05/29/22 Source: Developed by Drs. Holland Wisdom, Arelis B.W. Caleb Carter and colleagues, with an educational celso from [employer]. Review of Systems Const Denies headache(s) Eyes Denies loss of vision ENT Denies vertigo, Denies dizziness, Denies headache(s) and Denies sore throat Card Denies chest pain, Denies leg edema and Denies lightheadedness Resp Denies cough, Denies hemoptysis and Denies wheezing GI Denies abdominal pain, Denies melena, Denies constipation, Denies diarrhea and Denies vomiting Denies urinary frequency, Denies dysuria and Denies urinary urgency Musc Reports back pain, Denies arthralgias, Denies joint swelling, Denies numbness and Denies tingling Neuro Denies behavioral changes, Denies vertigo, Denies dizziness, Denies headache(s), Denies loss of vision, Denies memory loss, Denies numbness and Denies tingling Psych Denies anxiety, Denies behavioral changes, Denies depression, Denies memory loss and Denies panic attacks Jorge Luis/Lymph Denies easy bleeding and Denies easy bruising Aller/Immun Denies wheezing Physical exam (Primary Care) Vital Signs: Last Vital Signs Pulse 79 12/16/22 10:40 BP 126/67 12/16/22 10:40 BMI result Body Mass Index 29.5 Tobacco/Smoking Status: Tobacco use Status Tobacco use date assessed 05/29/22 12/16/22 10:44 Patient Tobacco Use Status Current everyday Tobacco 12/16/22 10:44 Tobacco use type Cigarette 12/16/22 10:44 e-Cigarette/Vaping Use Never Used 12/16/22 10:44 Thrive Assessment: Date of Thrive Assessment Date Thrive assessed 05/29/22 12/16/22 10:44 Telehealth Telehealth Location of provider rendering services: practice address Location of patient: address on file Patient Identification confirmed using: Name, : Yes Telehealth method: voice only Patient verbally consented to treatment: Yes Patient verbally consented to billing insurance company: Yes Patient informed of any privacy concerns related to visit: Yes Minutes spent on Phone/Video with Pt.: 11 Assessment and Plan Assessment & Plan (1) HTN (hypertension): Code(s): I10 - Essential (primary) hypertension Qualifiers: Hypertension type: essential hypertension Qualified Code(s): I10 - Essential (primary) hypertension Plan: Patient reports her blood pressures are 120 systolic at home. Denies any chest discomforts, dizziness. Does have some shortness of breath related to her COPD. Otherwise will continue her current dose of antihypertensive with goal blood pressure be below 140/90 (2) Tobacco dependence: Code(s): F17.200 - Nicotine dependence, unspecified, uncomplicated Plan: Patient continues to smoke half pack cigarettes per day and has no intention of quitting. Offered nicotine replacement though patient declines. (3) Degenerative disc disease, lumbar: Code(s): M51.36 - Other intervertebral disc degeneration, lumbar region Plan: Patient has long history of severe degenerative disc disease in her lumbar spine. She does use Soma a very limited p.r.n. basis with good effect on reducing her pain. (4) Impaired glucose metabolism: Code(s): R73.09 - Other abnormal glucose Plan: Patient's most recent fasting blood sugar at 130. Advised on low carbohydrate diet. Will check an A1c to evaluate for diabetes upon next lab draw. (5) Sinusitis: Code(s): J32.9 - Chronic sinusitis, unspecified Qualifiers: Chronicity: subacute Sinusitis location: frontal Qualified Code(s): J01.10 - Acute frontal sinusitis, unspecified Plan: Patient continues to have postnasal drip in sinusitis even with the use of daily Zyrtec. She will change her antihistamine to loratadine and try nasal sprays. (6) COPD (chronic obstructive pulmonary disease): Comment: COPD, MODERATELY SEVERE , STABLE , AND WELL CONTROLLED. ADVISED, TO USE VENTOLIN HFA 2 PUFFS Q.6 HOURS P.R.N.. * PATIENT DOES NOT WANT TO USE ANY LONG-ACTING BDOR ICS INHALERS Code(s): J44.9 - Chronic obstructive pulmonary disease, unspecified Qualifiers: COPD type: chronic bronchitis Chronic bronchitis type: simple Qualified Code(s): J41.0 - Simple chronic bronchitis Plan: Patient continues to follow pulmonology, has end-stage COPD and is on oxygen day and night. Unfortunately continues to smoke and has no thoughts about stop smoking. (7) Macrocytosis: Code(s): D75.89 - Other specified diseases of blood and blood-forming organs Plan: Continues to macrocytosis , B12 folate levels are normal likely due to her chronic disease of COPD. (8) High cholesterol: Code(s): E78.00 - Pure hypercholesterolemia, unspecified Plan: Patient continues on statin therapy without side effect. Most recent lipid panel showing appropriate total cholesterol LDL. Will continue to follow fasting lipid panels Orders: Orders Comprehensive [place]. Panel Fast 12/16/22 R73.09 - Other abnormal glucose Complete Blood Count no Diff 12/16/22 D75.89 - Other specified diseases of blood and blood-forming organs Lipid Panel 12/16/22 E78.00 - Pure hypercholesterolemia, unspecified Vitamin B12 and Folate 12/16/22 D75.89 - Other specified diseases of blood and blood-forming organs, E53.8 - Deficiency of other specified B group vitamins Medications: Refilled carisoprodol (Soma) 350 mg PO TID 30 days PRN 90 tabs 2RF muscle pain M51.36 - Other intervertebral disc degeneration, lumbar region Coding Level of Care Code Tele Est Pt Level 4 (61469) Diagnoses Essential hypertension I10 Hypertension type: essential hypertension Tobacco dependence F17.200 Degenerative disc disease, lumbar M51.36 Impaired glucose metabolism R73.09 Subacute frontal sinusitis J01.10 Chronicity: subacute Sinusitis location: frontal Simple chronic bronchitis J41.0 COPD type: chronic bronchitis Chronic bronchitis type: simple Macrocytosis D75.89 High cholesterol E78.00
== END 2022-12-16 13:45 | disposition home or self-care (01) ==
LOC: HO.HMGH 10:39
PROVIDERS: PCP Physician Assistant; Visit Provider Physician Assistant
DX: I10 Essential (primary) hypertension (principal); F17.210 Nicotine dependence, cigarettes, uncomplicated; M51.36 Other intervertebral disc degeneration, lumbar region; J41.0 Simple chronic bronchitis; R73.09 Other abnormal glucose; J01.10 Acute frontal sinusitis, unspecified; D75.89 Other specified diseases of blood and blood-forming organs; E78.00 Pure hypercholesterolemia, unspecified
CPT/HCPCS: 99442

== ENCOUNTER 2023-05-20 09:37 | Outpatient (AMB) | payer MEDICARE, SELFPAY ==
--- NOTE | 2023-05-20 09:46 | MHC.OFFVIS ---
Intake Vital Signs 05/20/23 09:48 Height 5 ft Weight 149 lb 14.629 oz BMI 29.3 BP 150/70 H Blood Pressure Location Lt brachial Position Sitting Pulse 91 Pulse Source Pulse Oximeter Pulse Oximetry (%) 91 L Oxygen Delivery Method Nasal Cannula Oxygen Flow Rate 1 Intake Visit Reasons: COPD follow-up Intake Note: pt is here for follow up and states she is getting up a lot of mucous, when doing cleaning she does use O2 on 2 liters, sitting on 1 liter Baseboard Heating Installer Required: No Allergies erythromycin base Allergy (Severe, Verified 05/20/23 10:04) Rash azithromycin Adverse Reaction (Severe, Verified 05/20/23 10:04) Nausea omeprazole Adverse Reaction (Intermediate, Verified 05/20/23 10:04) balance issues / dizziness Medication List - Last Reconciled 05/20/23 by Sherley Mancini MD carisoprodol (Soma) 350 mg PO TID PRN 30 days cetirizine (Zyrtec) 10 mg PO DAILY lisinopril 20 mg PO DAILY 90 days simvastatin 40 mg PO QPM Ventolin HFA 90 mcg/actuation (albuterol sulfate) 2 puffs inhalation Q4-6H PRN NS HPI COPD follow-up HPI Details GINNY is now 78 years old female with chronic obstructive pulmonary disease, moderately severe, She continues to smoke 10 cigarettes a day, she is on oxygen 24 hours a day She has stayed very well except for the past few weeks that she feels somewhat congested and has more mucus in the upper airways. It is white and thin, no fever or chills. Oxygen requirement has slightly increased now she needs 2 L/minute when doing some physical work or goes outdoors. The only medicine she has is Ventolin inhaler to be used once in a while. As per our previous discussions patient is not in favor of any long-acting bronchodilators or steroids, She has also not agreeable to have annual lung screening. [facility] Medical History Hiatal hernia Oxygen dependent AAA (abdominal aortic aneurysm) Anxiety Neck pain HTN (hypertension) Smoker Allergic rhinitis High cholesterol Intertrigo Epidermal cyst Exercise hypoxemia COPD (chronic obstructive pulmonary disease) Surgical History History of esophagogastroduodenoscopy (EGD) Hx of colonoscopy History of bilateral cataract extraction History of hemorrhoidectomy Family History Father Stroke Mother Stroke Brother Colon cancer Sister Diabetes High cholesterol Social History Housing: House Are you a primary customer care agent to a significant other at home: No Do you presently have visiting nurse or other home services: No Alcohol intake: never Patient Tobacco Use Status: Current everyday Tobacco user Tobacco use type: Cigarette Cigarette Packs Per Day: 0.5 Cigarettes Per Day: 10.0 Years Smoked: ~ 50 e-Cigarette/Vaping Use: Never Used Second Hand Smoke Exposure: No Advance Directives Date on File: 03/29/20 service: No Current occupational status: disabled Cognitive needs: No Hearing needs: Yes (bilateral hearing loss) Vision needs: No Review of Systems Const All systems reviewed & are unremarkable except as noted in HPI and below Eyes Reports no additional complaints ENT Reports nasal congestion (Mild intermittent) and Reports nasal discharge Card Reports no additional complaints Resp Reports as per HPI GI Reports no additional complaints Reports no additional complaints Musc Reports back pain (Mild chronic) Skin/Breast Reports system reviewed and no additional complaints, except as documented Neuro Reports no additional complaints Psych Reports no additional complaints Physical Exam Vital Signs: Last Vital Signs Pulse 91 05/20/23 09:48 BP 150/70 H 05/20/23 09:48 Pulse Ox 91 L 05/20/23 09:48 Oxygen Delivery Method Nasal Cannula 05/20/23 09:48 Oxygen Flow Rate 1 05/20/23 09:48 BMI result Body Mass Index 29.3 Const General: comfortable, no acute distress, alert and awake Orientation/consciousness: patient oriented x3 HEENT Head: Yes normal to inspection General nose exam: No nasal polyps present and No nasal discharge present Face and sinus: Yes sinuses nontender Mouth: oropharynx normal Throat: Yes posterior oropharynx normal Eyes General: appearance normal, both eyes and all related structures Neck Neck: Yes normal visual inspection, Yes no lymphadenopathy, Yes trachea midline and Yes no JVD Thyroid: Thyroid normal Chest Chest palpation & inspection: normal inspection of the chest, normal palpation of entire chest wall and no tenderness Resp Other: Percussion note resonant, breath sounds are distant but equal on both sides. No wheezes rhonchi or crepitations are heard on either side. Cardio Palpation: normal PMI Rate: regular rate Rhythm: regular rhythm Heart sounds: no gallops and no murmurs GI Palpation (GI): Soft to palpation, nontender, No hepatosplenomegaly present and no masses Auscultation: normal bowel sounds Back/Spine/Pelvis Thoracic/Lumbar Spine: thoracic and lumbar spine normal to inspection and thoraco-lumbar ROM limited Skin General skin exam: no rashes or lesions noted Neuro General: patient oriented x3 and no focal motor deficits Cranial nerves: Yes CN's II-XII intact bilaterally Extrem General: Yes normal to inspection, Yes no clubbing, cyanosis or edema and Yes no calf tenderness Psych Appearance: grossly normal and well kempt Speech and movement: Normal speech and movement present Assessment & Plan Assessment & Plan (1) COPD (chronic obstructive pulmonary disease): Comment: COPD, MODERATELY SEVERE , STABLE , AND WELL CONTROLLED. Code(s): J44.9 - Chronic obstructive pulmonary disease, unspecified Qualifiers: COPD type: chronic bronchitis Chronic bronchitis type: simple Qualified Code(s): J41.0 - Simple chronic bronchitis Plan: ADVISED, TO USE VENTOLIN HFA 2 PUFFS Q.6 HOURS P.R.N.. script renewed . * PATIENT DOES NOT WANT TO USE ANY LONG-ACTING BDOR ICS INHALERS (2) Exercise hypoxemia: Comment: SHE HAS DOCUMENTED HYPOXEMIA ON WALKING. SHE DOES WELL WITH THE OXYGEN SUPPLEMENTATION. Code(s): R09.02 - Hypoxemia Plan: TX: OKAY TO USE 1 L/MINUTE WHEN RESTING AT HOME AND DURING SLEEP, AND 2 L/MINUTE WHEN WALKING OUTDOORS. (3) Allergic rhinitis: Comment: SHE HAS CHRONIC SEASONAL RHINITIS WHICH FLARES UP EVERY NOW AND THEN. Code(s): J30.9 - Allergic rhinitis, unspecified Plan: TX : USE ZYRTEC 10 MG ONCE A DAY ONLY P.R.N.. (4) Smoker: Comment: SHE IS A [employer] SMO[employer]ER, UNABLE TO QUIT COMPLETELY , STILL SMOKED 10 CIGARETTES A DAY. DOES NOT WANT TO GO FOR ANNUAL SCREENING , SHE DOESN NOT WANT ANY ACTIVE TREATMENT EVEN IF SHE HAS CANCER . SAYS DON,T WASTE YOUR TIME IN COUNSELLING ME Code(s): F17.200 - Nicotine dependence, unspecified, uncomplicated Plan: Discussed again and she has reiterated that she likes to continue smoking 10 cigarettes a day, And she does not want to go for annual lung screening . She has again reiterated that she does not want to have any active intervention or life support. Coding Level of Care Code Est Pt Level 3 (71349) Diagnoses Simple chronic bronchitis J41.0 COPD type: chronic bronchitis Chronic bronchitis type: simple Exercise hypoxemia R09.02 Allergic rhinitis J30.9 Smoker F17.200
[2023-05-20 09:48] VITALS: BP 150/70; PULSE 91; O2SAT 91; BMI 29.3
== END 2023-05-20 10:08 | disposition home or self-care (01) ==
PROVIDERS: PCP Physician Assistant; Visit Provider Internal Medicine
DX: J41.0 Simple chronic bronchitis (principal); R09.02 Hypoxemia; J30.9 Allergic rhinitis, unspecified; F17.200 Nicotine dependence, unspecified, uncomplicated
CPT/HCPCS: 99213

== ENCOUNTER → 2023-05-20 09:37 | Outpatient (BNVA) | payer MEDICARE, SELFPAY | PROVIDERS: PCP Physician Assistant; Visit Provider Internal Medicine | DX: J41.0 Simple chronic bronchitis (principal); J30.9 Allergic rhinitis, unspecified; R09.02 Hypoxemia; F17.210 Nicotine dependence, cigarettes, uncomplicated | CPT/HCPCS: 99212 ==

== ENCOUNTER 2023-06-21 09:23 | Outpatient (REF) | payer MEDICARE, SELFPAY ==
[2023-06-21 11:10] LABS: Hematocrit 30.6 % (37.0-47.0); Hemoglobin 9.3 g/dl (12.0-16.0); Mean Corpuscular HGB Conc 30.4 g/dl (31.0-35.0); Mean Corpuscular Hemoglobin 28.9 pg (27.0-33.0); Mean Platelet Volume 8.9 fL (9.4-12.3); Platelet Count 304 X10*3/uL (160-400); Red Blood Count 3.22 X10*6/uL (4.20-5.50); Red Cell Distribution Width 12.2 % (11.0-16.0); White Blood Count 6.2 X10*3/uL (4.8-10.8)
[2023-06-21 11:32] LABS: Alanine Aminotransferase 15 U/L (0-31); Albumin Level 4.4 g/dL (3.5-5.0); Alkaline Phosphatase 80 U/L (39-117); Anion Gap 14 (12-20); Aspartate Amino Transferase 19 U/L (5-31); Bilirubin Total 0.3 mg/dL (0.0-1.0); Blood Urea Nitrogen 12 mg/dL (9-16); Calcium 9.6 mg/dL (8.4-10.2); Carbon Dioxide 32 mmol/L (22-29); Chloride 96 mmol/L (96-108); Cholesterol 167 mg/dL (<200); Estimated Glomerular Filt Rate > 60; Glucose Fasting 120 mg/dL (60-99); HDL Cholesterol 80 mg/dL (>40); Iron 25 mcg/dL (30-160); LDL Cholesterol Calculated 77 mg/dL (<100); Percent Iron Saturation 5 % (15-50); Potassium 4.6 mmol/L (3.3-5.1); Sodium 137 mmol/L (135-145); Total Iron Binding Capacity 467 mcg/dL (228-428); Total Protein 7.4 g/dL (6.5-8.0); Triglycerides 52 mg/dL (<150); Unsaturated Iron Binding 442 ug/dL
[2023-06-21 11:56] LABS: Folate 8.9 ng/mL (> or = 4.0); Vitamin B12 227 pg/mL (200-900)
== END 2023-06-21 09:24 | disposition home or self-care (01) ==
LOC: HO.HMGCLDS 09:23
PROVIDERS: PCP Physician Assistant; Visit Provider Physician Assistant
DX: R73.09 Other abnormal glucose (principal); D50.9 Iron deficiency anemia, unspecified; D75.89 Other specified diseases of blood and blood-forming organs; E78.00 Pure hypercholesterolemia, unspecified; E53.8 Deficiency of other specified B group vitamins; R73.03 Prediabetes
CPT/HCPCS: 36415; 80053; 80061; 82607; 82746; 83540; 85027

== ENCOUNTER 2023-06-23 09:50 | Outpatient (AMB) | payer MEDICARE, SELFPAY ==
--- NOTE | 2023-06-23 09:51 | MHC.PC.OV ---
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 Maker Required: No Allergies erythromycin base Allergy (Severe, Verified 06/23/23 10:13) Rash azithromycin Adverse Reaction (Severe, Verified 06/23/23 10:13) Nausea omeprazole Adverse Reaction (Intermediate, Verified 06/23/23 10:13) balance issues / dizziness Medication List - Last Reconciled 06/23/23 by Michael Curiel PA-C carisoprodol (Soma) 350 mg PO TID PRN 30 days cetirizine (Zyrtec) 10 mg PO DAILY lisinopril 20 mg PO DAILY 90 days simvastatin 40 mg PO QPM Ventolin HFA 90 mcg/actuation (albuterol sulfate) 2 puffs inhalation Q4-6H PRN NS Tobacco use date assessed: 06/23/23 Fall risk assessment: No Falls in past year Last assessed Fall Risk: 06/23/23 Dental Screening Dental Screen Date: 06/23/23 HPI f/u HTN/ HLD HPI Details Patient is a 78-year-old female being evaluated today via telephone. ?Patient has a past medical history significant for COPD, tobacco use disorder, degenerative disc disease in her lumbar spine, elevated cholesterol, hypertension. -Concern--> reports having right hip and knee pain. She is concerned about arthritis. Will order x-rays Lumbar spine pain: She does use Soma muscle relaxer on a p.r.n. basis with good effect on reducing her pain. She reports her pain gets worse during the cold winter months. .. HTN:?, she reports at home?her BP 122/80.? Denies any chest pain, palpitations or blurry vision. . Allergic rhinitis:? She does report over the last 6 weeks having intermittent headaches and nasal congestion.? She has been using [id number] allergy medication with some relief.? She uses intranasal ipratropium with good effect. . COPD:? followed by a materials clerk. On O2 continuously day and night. She reports her breathing has been stable, rarely has to use her rescue inhaler.? Unfortunately continues to smoke and does understand she needs to quit though is not willing to do so at this time. Reports she is smoking daily day. .. Hyperlipidemia:? Continues on statin therapy without any side effect.? Most recent total cholesterol couple, LDL -90 Reviewed patient's labs and noted a iron-deficiency anemia, hemoglobin at 9.3. Laboratory Tests 12/04/22 06/21/23 08:13 09:27 RBC 3.72 L 3.22 L Hgb 11.4 L 9.3 L Fasting Glucose 130 H 120 H Iron 25 L Cholesterol 182 167 Vitamin B12 227 [facility] Medical History Hiatal hernia Oxygen dependent AAA (abdominal aortic aneurysm) Anxiety Neck pain HTN (hypertension) Smoker Allergic rhinitis High cholesterol Intertrigo Epidermal cyst Exercise hypoxemia COPD (chronic obstructive pulmonary disease) Surgical History History of esophagogastroduodenoscopy (EGD) Hx of colonoscopy History of bilateral cataract extraction History of hemorrhoidectomy Family History Father Stroke Mother Stroke Brother Colon cancer Sister Diabetes High cholesterol Social History Housing: House Are you a primary home health caregiver to a significant other at home: No Do you presently have visiting nurse or other home services: No Alcohol intake: never Patient Tobacco Use Status: Current everyday Tobacco user Tobacco use type: Cigarette Cigarette Packs Per Day: 0.5 Cigarettes Per Day: 10.0 Years Smoked: ~ 50 e-Cigarette/Vaping Use: Never Used Second Hand Smoke Exposure: No Advance Directives Date on File: 03/29/20 service: No Current occupational status: disabled Cognitive needs: No Hearing needs: Yes (bilateral hearing loss) Vision needs: No Questionnaire PHQ-9 Over the last 2 weeks, how often have you been bothered by any of the following problems? 1. Little interest or pleasure in doing things: not at all 2. Feeling down, depressed, or hopeless: not at all 3. Trouble falling or staying asleep, or sleeping too much: not at all 4. Feeling tired or having little energy: not at all 5. Poor appetite or overeating: not at all 6. Feeling bad about yourself - or that you are a failure or have let yourself or your family down: not at all 7. Trouble concentrating on things, such as reading the newspaper or watching television: not at all 8. Moving or speaking so slowly that other people could have noticed. Or the opposite - being so fidgety or restless that you have been moving around a lot more than usual: not at all 9. Thoughts that you would be better off or of hurting yourself in some way: not at all Total score: 0 Depression Screening Interpretation: Negative Depression Screening Done: Yes 68385 - PHQ-9 Billing: Yes Source: Developed by Drs. Holland Wisdom, Arelis Carter, Caleb Cabrales and colleagues, with an educational celso from [employer]. Thrive Questionnaire Date Thrive assessed: 06/23/23 I am a: Patient What is your living situation today?: I have a steady place to live Within the past 12 months, did the food you bought not last and you didn't have the money to get more?: Never true Within the past 12 months, did you worry whether your food would run out before you got money to buy more?: Never true Do you have trouble paying for medicines?: No Do you have trouble getting transportation to medical appointments?: No Do you have trouble paying your heating and electricity bill?: No Do you have trouble taking care of your child, family member or friend?: No Do you have trouble with day-to-day activities such as bathing, preparing meals, shopping, managing finances, etc.?: No Are you currently unemployed and looking for a job?: No Are you interested in more education?: No Please select the resources that you would like help with: None Currently or been in a relationship where the following occur: no concerns reported THRIVE Score: 0 AUDIT C Alcohol Use Questionnaire (AUDIT-C) 1. How often do you have a drink containing alcohol?: Never 3. How often do you have six or more drinks on one occasion?: Never Total Score: 0 MAGI-7 AMB Questionnaire MAGI-7 Date MAGI - 7 assessed: 06/23/23 Feeling nervous, anxious, or on edge: 0 = Not at all Not being able to stop or control worryin = Not at all Worrying too much about different things: 0 = Not at all Trouble relaxin = Not at all Being so restless that it is hard to sit still: 0 = Not at all Becoming easily annoyed or irritable: 0 = Not at all Feeling afraid as if something awful might happen: 0 = Not at all Total MAGI-7 score (0-4 normal; 5-9 mild; 10-14 moderate; 15-21 severe): 0 Source: Developed by Drs. Holland Wisdom, Arelis Carter, Caleb Cabrales and colleagues, with an educational celso from [employer]. MAGI-7 Assessment Billing MAGI-7 Assessment Tool: MAGI-7 Assessment 89493 Review of Systems Const Denies headache(s) Eyes Denies loss of vision ENT Denies vertigo, Denies dizziness, Denies headache(s) and Denies sore throat Card Denies chest pain, Denies leg edema and Denies lightheadedness Resp Denies cough, Denies hemoptysis and Denies wheezing GI Denies abdominal pain, Denies melena, Denies constipation, Denies diarrhea and Denies vomiting Denies urinary frequency, Denies dysuria and Denies urinary urgency Musc Details: + Rt Knee and hip pain Reports arthralgias, Denies joint swelling, Denies numbness and Denies tingling Neuro Denies behavioral changes, Denies vertigo, Denies dizziness, Denies headache(s), Denies loss of vision, Denies memory loss, Denies numbness and Denies tingling Psych Denies anxiety, Denies behavioral changes, Denies depression, Denies memory loss and Denies panic attacks Jorge Luis/Lymph Denies easy bleeding and Denies easy bruising Aller/Immun Denies wheezing Physical exam (Primary Care) Tobacco/Smoking Status: Tobacco use Status Tobacco use date assessed 06/23/23 06/23/23 09:58 Patient Tobacco Use Status Current everyday Tobacco 06/23/23 09:58 Tobacco use type Cigarette 06/23/23 09:58 e-Cigarette/Vaping Use Never Used 06/23/23 09:58 Are you ready to quit: No Tobacco cessation counseling provided: Yes Items discussed: Nicotine replacement Relapse Prevention: discussed the importance of a supportive environment, discussed negative mood or depression after quitting, weight gain after smoking is common and discussed dietary, exercise and/or lifestyle changes Number of minutes spent counselin CPT code: 48924 - 4-10 Minutes PHQ-9: PHQ-9 Score PHQ-9: Total score 0 06/23/23 09:58 Depression Screening Interpretation: Negative Thrive Assessment: Date of Thrive Assessment Date Thrive assessed 06/23/23 06/23/23 09:58 Currently or been in a relationship where the following occur: no concerns reported Telehealth Telehealth Telehealth Platform: Telephone Location of provider rendering services: practice address Location of patient: address on file Patient Identification confirmed using: Name, : Yes Telehealth method: voice only Patient verbally consented to treatment: Yes Patient verbally consented to billing insurance company: Yes Patient informed of any privacy concerns related to visit: Yes Minutes spent on Phone/Video with Pt.: 11 Assessment and Plan Assessment & Plan (1) HTN (hypertension): Code(s): I10 - Essential (primary) hypertension Qualifiers: Hypertension type: essential hypertension Qualified Code(s): I10 - Essential (primary) hypertension Plan: Patient reports her blood pressures are 120 systolic at home. Denies any chest discomforts, dizziness. Does have some shortness of breath related to her COPD. Otherwise will continue her current dose of antihypertensive with goal blood pressure be below 140/90 (2) Tobacco dependence: Code(s): F17.200 - Nicotine dependence, unspecified, uncomplicated Plan: Patient continues to smoke half pack cigarettes per day and has no intention of quitting. Offered nicotine replacement though patient declines. Not interested in lung cancer screening (3) Degenerative disc disease, lumbar: Code(s): M51.36 - Other intervertebral disc degeneration, lumbar region Plan: Patient has long history of severe degenerative disc disease in her lumbar spine. She does use Soma a very limited p.r.n. basis with good effect on reducing her pain. (4) COPD (chronic obstructive pulmonary disease): Comment: COPD, MODERATELY SEVERE , STABLE , AND WELL CONTROLLED. Code(s): J44.9 - Chronic obstructive pulmonary disease, unspecified Qualifiers: COPD type: chronic bronchitis Chronic bronchitis type: simple Qualified Code(s): J41.0 - Simple chronic bronchitis Plan: Patient continues to follow pulmonology, has end-stage COPD and is on oxygen day and night. Unfortunately continues to smoke and has no thoughts about stop smoking. (5) High cholesterol: Code(s): E78.00 - Pure hypercholesterolemia, unspecified Plan: Patient continues on statin therapy without side effect. Most recent lipid panel showing appropriate total cholesterol LDL. Will continue to follow fasting lipid panels (6) Iron deficiency anemia: Code(s): D50.9 - Iron deficiency anemia, unspecified Qualifiers: Iron deficiency anemia type: inadequate dietary iron intake Qualified Code(s): D50.8 - Other iron deficiency anemias (7) Right hip pain: Code(s): M25.551 - Pain in right hip (8) Right knee pain: Code(s): M25.561 - Pain in right knee Qualifiers: Chronicity: chronic Qualified Code(s): M25.561 - Pain in right knee; G89.29 - Other chronic pain Orders: Orders XR knee RT 3V Today G89.29 - Other chronic pain, M25.561 - Pain in right knee Comprehensive [place]. Panel Fast Today R73.09 - Other abnormal glucose Microalbumin, Random (w Creat) Today I10 - Essential (primary) hypertension IRON PROFILE Today D50.8 - Other iron deficiency anemias, D50.9 - Iron deficiency anemia, unspecified XR hip RT min 2V Today M25.551 - Pain in right hip Hemoglobin A1c Today R73.09 - Other abnormal glucose Complete Blood Count no Diff Today I10 - Essential (primary) hypertension Medications: Refilled carisoprodol (Soma) 350 mg PO TID 30 days PRN 90 tabs 2RF muscle pain M51.36 - Other intervertebral disc degeneration, lumbar region Patient Instructions: Goal: Blood pressure to remain below 140/90 Barriers: Adherence to healthy eating habits and physical activity Coding Level of Care Code Tele Est Pt Level 4 (44110) Diagnoses Essential hypertension I10 Hypertension type: essential hypertension Tobacco dependence F17.200 Degenerative disc disease, lumbar M51.36 Simple chronic bronchitis J41.0 COPD type: chronic bronchitis Chronic bronchitis type: simple High cholesterol E78.00 Iron deficiency anemia secondary to inadequate dietary iron intake D50.8 Iron deficiency anemia type: inadequate dietary iron intake Right hip pain M25.551 Chronic pain of right knee M25.561; G89.29 Chronicity: chronic Additional Codes MAGI-7 Assessment Billing - MAGI-7 Assessment Tool: MAGI-7 Assessment 63310 ([id number]) Vital Signs *Quality* - CPT code: 56718 - 4-10 Minutes ([id number])
== END 2023-06-23 11:29 | disposition home or self-care (01) ==
LOC: HO.HMGH 09:51
PROVIDERS: PCP Physician Assistant; Visit Provider Physician Assistant
DX: I10 Essential (primary) hypertension (principal); M51.36 Other intervertebral disc degeneration, lumbar region; J41.0 Simple chronic bronchitis; E78.00 Pure hypercholesterolemia, unspecified; F17.200 Nicotine dependence, unspecified, uncomplicated; D50.8 Other iron deficiency anemias; M25.551 Pain in right hip; M25.561 Pain in right knee; G89.29 Other chronic pain
CPT/HCPCS: 99442

== ENCOUNTER 2023-09-27 09:34 | Outpatient (REF) | payer MEDICARE, SELFPAY ==
[2023-09-27 11:16] LABS: Estimated Average Glucose 126 mg/dL
[2023-09-27 11:22] LABS: Mean Corpuscular HGB Conc 29.2 g/dl (31.0-35.0); Mean Corpuscular Hemoglobin 23.8 pg (27.0-33.0); Mean Corpuscular Volume 81.6 fL (80.0-98.0); Mean Platelet Volume 8.8 fL (9.4-12.3); Platelet Count 323 X10*3/uL (160-400); Red Blood Count 2.94 X10*6/uL (4.20-5.50); Red Cell Distribution Width 15.4 % (11.0-16.0); White Blood Count 5.1 X10*3/uL (4.8-10.8)
[2023-09-27 11:29] LABS: Alanine Aminotransferase 11 U/L (0-31); Albumin Level 4.1 g/dL (3.5-5.0); Alkaline Phosphatase 71 U/L (39-117); Anion Gap 13 (12-20); Aspartate Amino Transferase 16 U/L (5-31); Bilirubin Total 0.2 mg/dL (0.0-1.0); Blood Urea Nitrogen 10 mg/dL (9-16); Calcium 9.2 mg/dL (8.4-10.2); Carbon Dioxide 31 mmol/L (22-29); Chloride 97 mmol/L (96-108); Estimated Glomerular Filt Rate > 60; Glucose Fasting 108 mg/dL (60-99); Iron 10 mcg/dL (30-160); Percent Iron Saturation 2 % (15-50); Potassium 4.5 mmol/L (3.3-5.1); Sodium 136 mmol/L (135-145); Total Iron Binding Capacity 438 mcg/dL (228-428); Total Protein 6.8 g/dL (6.5-8.0); Unsaturated Iron Binding 428 ug/dL
[2023-09-27 11:41] LABS: Creatinine Urine 88.87 mg/dL; Microalbum/Creatinine Ratio Ur 59.6 ug/mg cr (<30)
== END 2023-09-27 09:35 | disposition home or self-care (01) ==
LOC: HO.HMGCLDS 09:34
PROVIDERS: PCP Physician Assistant; Visit Provider Physician Assistant
DX: R73.09 Other abnormal glucose (principal); I10 Essential (primary) hypertension; D50.9 Iron deficiency anemia, unspecified; D50.8 Other iron deficiency anemias
CPT/HCPCS: 36415; 80053; 82043; 82570; 83036; 83540; 85027

== ENCOUNTER 2023-09-28 12:15 | Emergency (ER) | payer MEDICARE, SELFPAY ==
[2023-09-28] VITALS (8 sets, daily range): BP systolic 148–170; BP diastolic 57–83; PULSE 67–77; RESP 12–19; TEMP 36.5–37.2; O2SAT 95–98; BMI 30.7
--- NOTE | ~2023-09-28 | CT_ITS ---
EXAMINATION: CT ABDOMEN AND PELVIS WITH CONTRAST CLINICAL INFORMATION: Weakness, anemia, history of aortic aneurysm. COMPARISON: CT scan of the abdomen and pelvis dated 09/08/2017. Abdominal aortic ultrasound dated 10/08/2019. CT scan of the chest dated 03/23/2019. TECHNIQUE: Multidetector CT volumetric acquisition of the abdomen and pelvis was performed after the administration of 85 mL of intravenous Omnipaque 350. The data set was reformatted in the sagittal and coronal planes and reviewed on an independent workstation. This CT examination was performed using dose optimization techniques as appropriate, variously including the following: *Automated exposure control *Adjustment of mA and/or kV according to patient size (this includes techniques or standardized protocols for targeted exams where dose is matched to indication/reason for exam; i.e. extremities or head) *Use of iterative reconstruction technique DLP: 483 mGy-cm. FINDINGS: LOWER CHEST: Mild centrilobular and paraseptal emphysema. Diffuse thickening of the small airways and mild tubular bronchiectasis in both lower lobes. Linear areas of atelectasis in both lower lobes noted. There is a superimposed wedge-shaped area of subsegmental opacification and volume loss in the posterior medial right lower lobe, consistent with subsegmental area of atelectasis. No pleural effusion. Small retrocardiac hiatal hernia. Mitral annular calcifications and calcifications in the left ventricle, perhaps of the papillary muscles, unchanged since 2018. LIVER, GALLBLADDER, BILIARY TREE: Liver normal size and attenuation. No focal cystic or solid mass or intra-or extrahepatic ductal dilatation. Hepatic and portal veins patent. Gallbladder partially distended and within normal limits. 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 No pancreatic ductal dilatation, mass, or surrounding stranding. SPLEEN: Normal size and appearance. Splenic vein patent. ADRENAL GLANDS AND KIDNEYS: Adrenal glands bilaterally have a nodular and enlarged appearance, similar to the previous study, likely representing chronic nodular hypertrophy of the adrenal glands.. Kidneys bilaterally symmetric in size and function. There are multiple variably sized low-attenuation masses seen scattered in the right and left kidneys, consistent with benign cysts, which warrant no specific imaging follow-up., hydronephrosis, nephrolithiasis or perinephric stranding. URETERS AND BLADDER: Ureters decompressed and within normal limits. Bladder well distended and within normal limits. PELVIC ORGANS: Unremarkable. GASTROINTESTINAL TRACT: The stomach is suboptimally assessed due to decompression. There may be gastric wall thickening in the fundus region and extending along the proximal greater curvature of the stomach versus artifactual appearance due to underdistention. Small and large bowel loops decompressed and unremarkable. Appendix not seen, but no focal inflammatory process noted in the right lower quadrant. LYMPHOVASCULAR STRUCTURES: Small hourglass shaped fusiform infrarenal abdominal aortic aneurysm again noted, maximal AP diameter of 2.7 cm, similar to the prior exam demonstrates atherosclerotic calcification of the aorta seen. No periaortic collections. No abdominal or pelvic adenopathy or free fluid collection. BONES: S-shaped thoracolumbar scoliosis with moderate to severe degenerative disc disease throughout the lumbar spine and moderate facet arthropathy in the mid and lower lumbar spine. Severe degenerative change of the right hip joint noted with complete loss of the superior joint space and prominent hypertrophic changes and mild flattening of the femoral head. CT/CT abdomen pelvis w IV con IMPRESSION: * No acute intra-abdominal or pelvic process seen. Specifically, no change in size of abdominal aortic aneurysm and no evidence of retroperitoneal hematoma. * Stable small infrarenal abdominal aortic aneurysm with maximum AP diameter of 2.7 cm. Based on published guidelines in J Am Kadeem Radiol 2013; 10(10):789-794 and J Vasc Surg. 2018; 67:2-77, the recommendation for an abdominal aorta with diameter 2.6-2.9 cm is follow-up every 5 years if the aorta that meets the criteria for AAA (>1.5 x proximal normal segment; no f/u if < 1.5 x proximal normal segment; no f/u for aorta < 2.6 cm). * Small retrocardiac hiatal hernia. The stomach is suboptimally assessed due to underdistention. There may be gastric wall thickening in the fundus region and extending along the proximal greater curvature of the stomach versus artifactual appearance due to underdistention. Close clinical correlation is requested. If clinically indicated, further assessment with upper GI study could be performed. 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 Per the ACR incidental guidelines recommendations for a incidentally detected pancreatic cysts measuring less than 1.5 cm presenting between the ages of 65 and 79 years, repeat imaging every 2 years for 5 years is recommended. If stable at 10 years, no further imaging follow-up warranted. * Benign bilateral renal cysts, which warrant no imaging follow-up. * Severe degenerative changes in the right hip joint and spine.
--- NOTE | 2023-09-28 12:23 | ED.GENADULT ---
HPI - General Adult General Chief complaint: Recheck/Abnormal Lab/Rx Stated complaint: May need transfusion - pcp told to come to ED Time Seen by Provider: 09/28/23 12:37 Source: patient, family and old records reviewed Mode of arrival: ambulatory Limitations: no limitations History of Present Illness ED Provider: BRIDGET ANGELA narrative: 78 yo female with PMH of Fe deficiency anemia, HTN, chronic back pain, COPD on 2L NC who has had increased POWERS, fatigue for a few weeks saw PCP found to have hemoglobin 7.0. NO chest pain, denies black or bloody stools. No cough or fevers. She was sent in by PCP for evaluation. Had colonoscopy about 20 years ago doesn't want to do it again. Cannot tolerate Fe pills. She does david abdominal aortic aneurysm but stopped following with vascular she states. MD complaint: anemia Onset (ago): week(s) (3) Radiation: non-radiation Severity: moderate Relieving factors: rest Exacerbating factors: movement Associated symptoms: other (fatigue, POWERS, weakness) Treatments prior to arrival: none Related Data Home Medications ?Medication ?Instructions ?Recorded ?Confirmed cetirizine 10 mg tablet (Zyrtec) 10 mg PO DAILY 12/07/20 06/23/23 Previous Rx's ?Medication ?Instructions ?Recorded lisinopril 20 mg tablet 20 mg PO DAILY 90 days #90 tabs 11/17/22 simvastatin 40 mg tablet 40 mg PO QPM #90 tabs 12/18/22 Ventolin HFA 90 mcg/actuation 2 puff inhalation Q4-6H PRN 05/20/23 aerosol inhaler (albuterol sulfate) shortness of breath or wheezing #18 grams carisoprodol 350 mg tablet (Soma) 350 mg PO TID PRN muscle pain 30 06/23/23 days #90 tabs ferrous sulfate 220 mg (44 mg 220 mg (5 mL) PO DAILY 30 days 06/26/23 iron)/5 mL oral elixir #150 mL Allergies Allergy/AdvReac Type Severity Reaction Status Date / Time erythromycin base Allergy Severe Rash Verified 09/28/23 12:28 azithromycin AdvReac Severe Nausea Verified 09/28/23 12:28 omeprazole AdvReac Intermediate balance Verified 09/28/23 12:28 issues / dizziness Review of Systems Review of Systems: Constitutional : No Fever, No Chills, pos fatigue ENT/Mouth : No sore throat, No Rhinorrhea, No Swallowing Difficulty Eyes: No Eye Pain, No Swelling, No Redness Cardiovascular : No Chest Pain, positive SOB, No Orthopnea, noEdema Respiratory : No Cough, No Sputum, No Wheezing, positive dyspnea Gastrointestinal : No Nausea, No Vomiting, No Diarrhea, No abdominal Pain, No Hematochezia, No Melena Genitourinary : No Dysuria, No Urinary Frequency, No Hematuria Musculoskeletal : No joint pain, No Myalgias Skin : No Skin Lesions, No rash Neuro : No Weakness, No Numbness, No Dizziness, No Headache All other systems reviewed and are negative [facility] Past Medical History Attestation statement: The following information was validated with the patient. Source: old records reviewed Medical History Hiatal hernia Oxygen dependent AAA (abdominal aortic aneurysm) Anxiety Neck pain HTN (hypertension) Smoker Allergic rhinitis High cholesterol Intertrigo Epidermal cyst Exercise hypoxemia COPD (chronic obstructive pulmonary disease) Surgical History History of esophagogastroduodenoscopy (EGD) Hx of colonoscopy History of bilateral cataract extraction History of hemorrhoidectomy Family History Family History Father Stroke Mother Stroke Brother Colon cancer Sister Diabetes High cholesterol Social History Social History Housing: House Are you a primary health care liaison to a significant other at home: No Do you presently have visiting nurse or other home services: No Alcohol intake: never Patient Tobacco Use Status: Current everyday Tobacco user Tobacco use type: Cigarette Cigarette Packs Per Day: 0.5 Cigarettes Per Day: 10.0 Years Smoked: ~ 50 Smoked in Last 30 Days: Yes e-Cigarette/Vaping Use: Never Used Second Hand Smoke Exposure: No Use of substances other than those prescribed or required for medical reasons: No Advance Directives: Yes Advance Directives Information Provided: Yes Advance Directives on File: No Advance Directives Date on File: 03/29/20 service: No Current occupational status: disabled Cognitive needs: No Hearing needs: Yes (bilateral hearing loss) Vision needs: No Physical Exam ED Vital Signs: Vital Signs - 24 hr 09/28/23 12:25 09/28/23 14:50 09/28/23 14:55 Temperature 99.0 F 98.2 F 98.2 F Pulse Rate 76 77 77 Respiratory Rate 18 12 19 Blood Pressure 157/65 H 170/68 H 154/83 H Pulse Oximetry 95 96 Oxygen Delivery Method Nasal Cannula Nasal Cannula Oxygen Flow Rate 2 09/28/23 15:01 Temperature 98.3 F Pulse Rate 77 Respiratory Rate 14 Blood Pressure 155/57 H Pulse Oximetry Oxygen Delivery Method Oxygen Flow Rate BMI result Body Mass Index 30.7 Appearance: Alert. Oriented X3. No acute distress. Eyes: Pupils equal, round and reactive to light. ENT: Pharynx normal. Neck: Normal inspection. Neck supple. CVS: Normal heart rate and rhythm. Pulses normal. Respiratory: No respiratory distress. Breath sounds diminished throughout Abdomen: Soft and nontender. No pulsatile mass Rectal: light brown stool Skin: Skin warm and dry. pale skin color. Normal skin turgor. Extremities: pitting 2+ lower extremity edema. Neuro: Oriented X 3. No motor deficit. No sensory deficit. Course Course Course Narrative: This is a Rapid Medical Exam performed in triage by Trinity Rainey PA-C. Full HPI, ROS and PE to be performed by primary ED provider. 78 yo F w/PMHx HTN, anemia, HLD, CHF, AAA, COPD on 1-2L O2 baseline, presenting to the ED c/o low H/H 7.0/24.0 on outpatient labs yesterday (was seen for routine visit). denies taking AC or Motrin. denies rectal bleeding or melena at present. PE: Pale, talking in complete sentences Plan: EKG, labs, UA, occult stool Reevaluation(s) Reevaluation #1: signed out to Reed pending CT scan and reassessment after transfusion Medications Administered Discontinued Medications Generic Name Dose Route Start Last Admin Trade Name Freq PRN Reason Stop Dose Admin Sodium Chloride 100 mls @ 100 mls/hr 09/28/23 13:34 09/28/23 14:30 Ns IV 09/28/23 14:33 100 mls/hr ONCE ONE Administration Iohexol 85 ml 09/28/23 13:57 09/28/23 13:57 Iohexol 350 Mg/Ml 75 Ml Infus..Btl IV 09/28/23 13:58 85 ml ONCE ONE Administration Medical Decision Making Medical Decision Making [facility] Narrative: 78 yo female with PMH of Fe deficiency anemia, HTN, chronic back pain, COPD on 2L NC here with c/o dyspnea on exertion and fatigue at this time concern for worsening anemia - denies GIB symptoms will obtain labs, type and screen will anticipate transfusion given her symptoms - guiac study she denies UGIB symptoms does not take NSAIDs. She has aneurysm but doubt fistula would anticipate worsening bleeding. At this time also start on IV lasix given the edema depending on transfusion and CT scan may be able to go home Differential Diagnosis Differential Diagnoses: The differential diagnosis associated with the presentation includes mass, Fe deficiency anemia Admission/Observation Consideration of admission/observation: Escalation of care including admission/observation considered depending on how she feels after tranfusion and CT scan may be able to go home with IV Fe infusion recommendations Lab Data [facility] Lab Attestation statement: I reviewed the patient's lab results. 09/28/23 13:12 09/28/23 13:12 Labs: Lab Results 09/28/23 09/28/23 Range/Units 13:12 13:18 WBC 6.1 (4.8-10.8) X10*3/uL RBC 3.00 L (4.20-5.50) X10*6/uL Hgb 7.0 L* (12.0-16.0) g/dl Hct 24.4 L (37.0-47.0) % MCV 81.3 (80.0-98.0) fL MCH 23.3 L (27.0-33.0) pg MCHC 28.7 L (31.0-35.0) g/dl RDW 15.4 (11.0-16.0) % Plt Count 287 (160-400) X10*3/uL MPV 8.3 L (9.4-12.3) fL Immature Gran % (Auto) 0.3 (0.0-0.4) % Neut % (Auto) 65.9 (45-73) % Lymph % (Auto) 22.2 (20-40) % [place] % (Auto) 9.9 (2-11) % Eos % (Auto) 1.0 (0-4) % Baso % (Auto) 0.7 (0-2) % Lymph # (Auto) 1.4 (1.2-4.9) X10*3/uL [place] # (Auto) 0.6 (0.1-1.2) X10*3/uL Eos # (Auto) 0.1 (0.0-0.4) X10*3/uL Baso # (Auto) 0.0 (0.0-0.2) X10*3/uL Abs Immat Gran (auto) 0.02 (0.00-0.03) X10*3/uL Absolute Neuts (auto) 4.0 (2.0-8.3) x10*3/uL Absolute Nucleated RBC 0.000 (0.0-0.012) X10*3/uL Nucleated RBC % (auto) 0.0 (0.0-0.2) /100WBC PT 10.1 L (11.1-13.3) SEC INR 0.8 L (0.9-1.1) APTT 27.7 (26.0-36.8) SEC Sodium 135 (135-145) mmol/L Potassium 4.8 (3.3-5.1) mmol/L Chloride 96 (96-108) mmol/L Carbon Dioxide 30 H (22-29) mmol/L Anion Gap 14 (12-20) BUN 10 (9-16) mg/dL Creatinine 0.67 (0.5-1.4) mg/dL Estim Creat Clear Calc 57.7 Estimated GFR > 60 Random Glucose 113 (60-115) mg/dL Calcium 9.4 (8.4-10.2) mg/dL Magnesium 2.0 (1.6-2.6) mg/dL Iron 12 L (30-160) mcg/dL TIBC 460 H (228-428) mcg/dL % Saturation 3 L (15-50) % Unsat Iron Binding 448 ug/dL Total Bilirubin 0.2 (0.0-1.0) mg/dL Direct Bilirubin < 0.2 (0.0-0.5) mg/dL AST 16 (5-31) U/L ALT 12 (0-31) U/L Alkaline Phosphatase 75 (39-117) U/L Troponin I High Sens 7.8 (<3.5-17.0) ng/L B-Natriuretic Peptide 101 H (<100) pg/mL Total Protein 7.0 (6.5-8.0) g/dL Albumin 4.2 (3.5-5.0) g/dL Vitamin B12 217 (200-900) pg/mL Folate 8.3 (> or = 4.0) ng/mL Stool Occult Blood NEGATIVE (NEGATIVE) Blood Type O Positive Antibody Screen NEGATIVE Crossmatch See Detail Independent Interpretation I performed an independent interpretation of an: EKG and CT Scan Interpretation: Rate: 74 Rhythm: NSR [place]: left, LVH Normal P waves. Normal KRISSY. Normal QRS complex. ST T wave : t waves tall V2-V3 qTC: 410 prior studies: The study has been interpreted contemporaneously by me. . Radiology Impression Discussion of test interpretation with radiology: I have reviewed the radiologist's reading. Independent Historian Clinical information obtained from an independent historian. History obtained from or confirmed by: Other (daughter) External Record Review External record reviewed: Inpatient record Discharge Plan Discharge Clinical Impression: Iron deficiency anemia, POWERS (dyspnea on exertion) Patient Disposition: Still a Patient Instructions: Dyspnea (ED), Anemia (ED), Blood Transfusion (DC) Additional Instructions: follow up with Dr. Barrow her number is listed below repeat blood counts with your doctor by Friday you can get Iron infusions as an outpatient scheduled by your doctor please contact them to do this return for increased swelling, trouble breathing, rash or vomiting return for any worsening symptoms or concerns. incidental findings on your CT scan cyst of pancreas stable aortic aneurysm small hiatal hernia Prescriptions: No Action lisinopril 20 mg tablet 20 mg PO DAILY 90 Days Qty: 90 3RF simvastatin 40 mg tablet 40 mg PO QPM Qty: 90 2RF ferrous sulfate 220 mg (44 mg iron)/5 mL elixir 220 mg PO DAILY 30 Days Qty: 150 3RF cetirizine [Zyrtec] 10 mg Tablet 10 mg PO DAILY carisoprodol [Soma] 350 mg tablet 350 mg PO TID PRN (Reason: muscle pain) 30 Days Qty: 90 2RF albuterol sulfate [Ventolin HFA] 90 mcg/actuation HFA aerosol inhaler 2 puff inhalation Q4-6H PRN (Reason: shortness of breath or wheezing) Qty: 18 3RF Print Language: Setswana
--- NOTE | 2023-09-28 12:28 | ECG_ITS ---
Test Reason : ANEMIA Blood Pressure : / mmHG Vent. Rate : 074 BPM Atrial Rate : 074 BPM P-R Int : 164 ms QRS Dur : 102 ms QT Int : 370 ms P-R-T Axes : 037 -30 070 degrees QTc Int : 410 ms Sinus rhythm with Premature atrial complexes Left axis deviation Minimal voltage criteria for LVH, may be normal variant ( Konrad product ) Septal infarct (cited on or before 23-MAR-2019) Abnormal ECG When compared with ECG of 23-MAR-2019 07:42, Premature atrial complexes are now Present QRS duration has increased Referred By: Trinity Rainey Electronically Signed By:JOAQUÍN COCHRAN
[2023-09-28 13:22] LABS: MANUAL DIFF FLAG NO
[2023-09-28 13:23] LABS: Basophils Percent Auto 0.7 % (0-2); Eosinophils Absolute Auto 0.1 X10*3/uL (0.0-0.4); Hematocrit 24.4 % (37.0-47.0); Imm Gran Abs Auto 0.02 X10*3/uL (0.00-0.03); Imm Gran Pct Auto 0.3 % (0.0-0.4); Lymphocytes Absolute Auto 1.4 X10*3/uL (1.2-4.9); Lymphocytes Percent Auto 22.2 % (20-40); Mean Corpuscular HGB Conc 28.7 g/dl (31.0-35.0); Mean Corpuscular Hemoglobin 23.3 pg (27.0-33.0); Mean Corpuscular Volume 81.3 fL (80.0-98.0); Mean Platelet Volume 8.3 fL (9.4-12.3); Monocytes Absolute Auto 0.6 X10*3/uL (0.1-1.2); Monocytes Percent Auto 9.9 % (2-11); Neutrophils Percent Auto 65.9 % (45-73); Platelet Count 287 X10*3/uL (160-400); Red Cell Distribution Width 15.4 % (11.0-16.0); White Blood Count 6.1 X10*3/uL (4.8-10.8)
[2023-09-28 13:33] LABS: INTERNATIONAL NORM RATIO 0.8 (0.9-1.1); Prothrombin Time 10.1 SEC (11.1-13.3)
[2023-09-28 13:34] LABS: OBS Int Ctl Valid YES; OBS1 NEGATIVE (NEGATIVE)
[2023-09-28 13:36] LABS: Partial Thromboplastin Time 27.7 SEC (26.0-36.8)
[2023-09-28 13:44] LABS: Iron 12 mcg/dL (30-160); Percent Iron Saturation 3 % (15-50); Total Iron Binding Capacity 460 mcg/dL (228-428); Unsaturated Iron Binding 448 ug/dL
[2023-09-28 13:45] LABS: Alanine Aminotransferase 12 U/L (0-31); Albumin Level 4.2 g/dL (3.5-5.0); Alkaline Phosphatase 75 U/L (39-117); Anion Gap 14 (12-20); Aspartate Amino Transferase 16 U/L (5-31); Bilirubin Direct < 0.2 mg/dL (0.0-0.5); Bilirubin Total 0.2 mg/dL (0.0-1.0); Blood Urea Nitrogen 10 mg/dL (9-16); Calcium 9.4 mg/dL (8.4-10.2); Carbon Dioxide 30 mmol/L (22-29); Chloride 96 mmol/L (96-108); Creatinine Clr Calc Pharmacy 57.7; Estimated Glomerular Filt Rate > 60; Glucose Random 113 mg/dL (60-115); Potassium 4.8 mmol/L (3.3-5.1); Sodium 135 mmol/L (135-145)
[2023-09-28 13:52] LABS: B Type Natriuretic Peptide 101 pg/mL (<100); Troponin-I High Sensitivity 7.8 ng/L (<3.5-17.0)
[2023-09-28] MEDS: iohexoL 350 MG/ML 75 ML INFUS..BTL 85 ML IV (13:57)
[2023-09-28 14:21] LABS: Folate 8.3 ng/mL (> or = 4.0)
[2023-09-28 14:27] LABS: Vitamin B12 217 pg/mL (200-900)
--- NOTE | 2023-09-28 15:43 | PC.NURSE ---
Blood products started late due to problem with the tubing and priming the line. Blood products started at 14:50pm without incidient.
[2023-09-28 15:58] LABS: Appearance Urine Clear; Color Urine Yellow; Glucose Urine UA Negative (Negative); Leukocyte Esterase Urine Negative (Negative); Nitrite Urine Negative (Negative); PH 8.5 (5.0-9.0); Specific Gravity - Urine 1.025 (1.005-1.025); Urine Blood Negative (Negative); Urine Ketones Negative (Negative); Urine Protein Negative (Neg-Trace)
[2023-09-28] MEDS: Furosemide 20 MG/2 ML VIAL IVPUSH (16:41)
== END 2023-09-28 19:12 | disposition home or self-care (01) ==
PROVIDERS: Emergency Medicine; Physician Assistant; Emergency Provider Emergency Medicine; PCP Physician Assistant
DX: D50.9 Iron deficiency anemia, unspecified (principal); R06.02 Shortness of breath; R94.31 Abnormal electrocardiogram [ECG] [EKG]; R10.2 Pelvic and perineal pain; Z79.899 Other long term (current) drug therapy
CPT/HCPCS: 36415; 74177; 80048; 80076; 81003; 82272; 82607; 82746; 83540; 83735; 83880; 84484; 85025; 85610; 85730; 86850; 86900; 86901; 86923; 93005; 96360; 99284; 99285; J1940; P9016; Q9967

== ENCOUNTER 2023-10-01 08:57 | Outpatient (AMB) | payer MEDICARE, SELFPAY ==
--- NOTE | 2023-10-01 08:58 | A.OFFPC_ITS ---
Vital Signs 10/01/23 09:00 BP 106/63 Blood Pressure Location Lt brachial Position Sitting Pulse Oximetry (%) 94 Oxygen Delivery Method Nasal Cannula Oxygen Flow Rate 1 Comment HOME READING Intake Visit Reasons: f/u Labs/ HTN/ COPD (telehealth) [employer] Required: No Allergies erythromycin base Allergy (Severe, Verified 10/01/23 09:08) Rash azithromycin Adverse Reaction (Severe, Verified 10/01/23 09:08) Nausea omeprazole Adverse Reaction (Intermediate, Verified 10/01/23 09:08) balance issues / dizziness Medication List - Last Reconciled 10/01/23 by Michael Curiel PA-C carisoprodol (Soma) 350 mg PO TID PRN 30 days cetirizine (Zyrtec) 10 mg PO DAILY ferrous sulfate 220 mg (5 mL) PO DAILY 30 days lisinopril 20 mg PO DAILY 90 days simvastatin 40 mg PO QPM Ventolin HFA 90 mcg/actuation (albuterol sulfate) 2 puffs inhalation Q4-6H PRN NS Tobacco use date assessed: 06/23/23 Fall risk assessment: No Falls in past year Last assessed Fall Risk: 10/01/23 Dental Screening Dental Screen Date: 06/23/23 HPI f/u Labs/ HTN/ COPD (telehealth) HPI Details Patient is a 78-year-old female being evaluated today via telephone. ?Patient has a past medical history significant for COPD, tobacco use disorder, degenerative disc disease in her lumbar spine, elevated cholesterol, hypertension. -Concern--> recently found to drasticall y reduced hemoglobin and red blood cell count. Was advised to go the ER and she eventually did. She did get a blood transfusion while in the ER in the . CTA abdomen did show a pancreatic mass that appeared to be a cyst. She does have difficulty swallowing pills thus has a iron elixer available to her. Unfortunately was not able to open the bottle per patient. Now has follow-up with Hematology and will likely discuss IV iron infusions. Explained to her an iron rich diet in the possible need to start fiber supplementation CHRONIC CONDITIONS--> Lumbar spine pain: She does use Soma muscle relaxer on a p.r.n. basis with good effect on reducing her pain. She reports her pain gets worse during the cold winter months. .. HTN:she reports at home?her BP 122/80.? Denies any chest pain, palpitations or blurry vision. . COPD:? 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 On O2 continuously day and night. She reports her breathing has been stable, rarely has to use her rescue inhaler.? Unfortunately continues to smoke and does understand she needs to quit though is not willing to do so at this time. Reports she is smoking daily day. .. Hyperlipidemia:? Continues on statin therapy without any side effect.? Most recent total cholesterol couple, LDL -90 Laboratory Tests 12/04/22 06/21/23 09/27/23 08:13 09:27 09:42 Hgb 11.4 L 9.3 L 7.0 L* D Iron 10 L Vitamin B12 09/28/23 13:12 Hgb 7.0 L* Iron 12 L Vitamin B12 217 PFSH Medical History Hiatal hernia Oxygen dependent AAA (abdominal aortic aneurysm) Anxiety Neck pain HTN (hypertension) Smoker Allergic rhinitis High cholesterol Intertrigo Epidermal cyst Exercise hypoxemia COPD (chronic obstructive pulmonary disease) Surgical History History of esophagogastroduodenoscopy (EGD) Hx of colonoscopy History of bilateral cataract extraction History of hemorrhoidectomy Family History Father Stroke Mother Stroke Brother Colon cancer Sister Diabetes High cholesterol Social History Housing: House Are you a primary furnace caretaker to a significant other at home: No Do you presently have visiting nurse or other home services: No Alcohol intake: never Patient Tobacco Use Status: Current everyday Tobacco user Tobacco use type: Cigarette Cigarette Packs Per Day: 0.5 Cigarettes Per Day: 10.0 Years Smoked: ~ 50 e-Cigarette/Vaping Use: Never Used Second Hand Smoke Exposure: No Advance Directives Date on File: 03/29/20 service: No Current occupational status: disabled Cognitive needs: No Hearing needs: Yes (bilateral hearing loss) Vision needs: No Questionnaire Thrive Questionnaire Date Thrive assessed: 06/23/23 AUDIT C Alcohol Use Questionnaire (AUDIT-C) 1. How often do you have a drink containing alcohol?: Never 3. How often do you have six or more drinks on one occasion?: Never Total Score: 0 MAGI-7 AMB Questionnaire MAGI-7 Date MAGI - 7 assessed: 06/23/23 Feeling nervous, anxious, or on edge: 0 = Not at all Not being able to stop or control worryin = Not at all Worrying too much about different things: 0 = Not at all Trouble relaxin = Not at all Being so restless that it is hard to sit still: 0 = Not at all Becoming easily annoyed or irritable: 0 = Not at all Feeling afraid as if something awful might happen: 0 = Not at all Total MAGI-7 score (0-4 normal; 5-9 mild; 10-14 moderate; 15-21 severe): 0 Source: Developed by Drs. Holland Wisdom, Arelis Carter, Caleb Cabrales and colleagues, with an educational celso from [employer]. MAGI-7 Assessment Billing MAGI-7 Assessment Tool: MAGI-7 Assessment 26614 Review of Systems Const Denies headache(s) Eyes Denies loss of vision ENT Denies vertigo, Denies dizziness, Denies headache(s) and Denies sore throat Card Denies chest pain, Denies leg edema and Denies lightheadedness Resp Denies cough, Denies hemoptysis and Denies wheezing GI Denies abdominal pain, Denies melena, Denies constipation, Denies diarrhea and Denies vomiting Denies urinary frequency, Denies dysuria and Denies urinary urgency Musc Denies arthralgias, Denies joint swelling, Denies numbness and Denies tingling Neuro Denies behavioral changes, Denies vertigo, Denies dizziness, Denies headache(s), Denies loss of vision, Denies memory loss, Denies numbness and Denies tingling Psych Denies anxiety, Denies behavioral changes, Denies depression, Denies memory loss and Denies panic attacks Jorge Luis/Lymph Denies easy bleeding and Denies easy bruising Aller/Immun Denies wheezing Physical exam (Primary Care) Vital Signs: Last Vital Signs BP 106/63 10/01/23 09:00 Pulse Ox 94 10/01/23 09:00 Oxygen Delivery Method Nasal Cannula 10/01/23 09:00 Oxygen Flow Rate 1 10/01/23 09:00 Tobacco/Smoking Status: Tobacco use Status Tobacco use date assessed 06/23/23 10/01/23 09:01 Patient Tobacco Use Status Current everyday Tobacco 10/01/23 09:01 Tobacco use type Cigarette 10/01/23 09:01 e-Cigarette/Vaping Use Never Used 10/01/23 09:01 Thrive Assessment: Date of Thrive Assessment Date Thrive assessed 06/23/23 10/01/23 09:01 Telehealth Telehealth Telehealth Platform: Telephone Location of provider rendering services: practice address Location of patient: address on file Patient Identification confirmed using: Name, : Yes Telehealth method: voice only (android // [phone]) Patient verbally consented to treatment: Yes Patient verbally consented to billing insurance company: Yes Patient informed of any privacy concerns related to visit: Yes Minutes spent on Phone/Video with Pt.: 18 Assessment and Plan Assessment & Plan (1) Iron deficiency anemia: Code(s): D50.9 - Iron deficiency anemia, unspecified Qualifiers: Iron deficiency anemia type: inadequate dietary iron intake Qualified Code(s): D50.8 - Other iron deficiency anemias Plan: Was found to have significant anemia, was seen at the ER and did get a blood transfusion. She will start iron elixer today as she reports she was able to open the bottle. Reports she was not able to open the bottle previously. Has upcoming appointment with Hematology and is considering iron infusions (2) HTN (hypertension): Code(s): I10 - Essential (primary) hypertension Qualifiers: Hypertension type: essential hypertension Qualified Code(s): I10 - Essential (primary) hypertension Plan: Patient reports her blood pressures are 120 systolic at home. Denies any chest discomforts, dizziness. Does have some shortness of breath related to her COPD. Otherwise will continue her current dose of antihypertensive with goal blood pressure be below 140/90 (3) Tobacco dependence: Code(s): F17.200 - Nicotine dependence, unspecified, uncomplicated Plan: Patient continues to smoke half pack cigarettes per day and has no intention of quitting. Offered nicotine replacement though patient declines. Not interested in lung cancer screening (4) Degenerative disc disease, lumbar: Code(s): M51.36 - Other intervertebral disc degeneration, lumbar region Plan: Patient has long history of severe degenerative disc disease in her lumbar spine. She does use Soma a very limited p.r.n. basis with good effect on reducing her pain. (5) COPD (chronic obstructive pulmonary disease): Comment: COPD, MODERATELY SEVERE , STABLE , AND WELL CONTROLLED. Code(s): J44.9 - Chronic obstructive pulmonary disease, unspecified Qualifiers: COPD type: chronic bronchitis Chronic bronchitis type: simple Qualified Code(s): J41.0 - Simple chronic bronchitis Plan: Patient continues to follow pulmonology, has end-stage COPD and is on oxygen day and night. Unfortunately continues to smoke and has no thoughts about stop smoking. (6) High cholesterol: Code(s): E78.00 - Pure hypercholesterolemia, unspecified Plan: Patient continues on statin therapy without side effect. Most recent lipid panel showing appropriate total cholesterol LDL. Will continue to follow fasting lipid panels Medications: Refilled carisoprodol (Soma) 350 mg PO TID PRN 90 tabs 2RF muscle pain 30 days M51.36 - Other intervertebral disc degeneration, lumbar region Patient Instructions: Goal: Blood pressure to remain below 140/90, increased hemoglobin using p.o. iron Barriers: Continued smoking, adherence to physical activity and healthy eating habits. Coding Level of Care Code Tele Est Pt Level 3 (67793) Diagnoses Iron deficiency anemia secondary to inadequate dietary iron intake D50.8 Iron deficiency anemia type: inadequate dietary iron intake Essential hypertension I10 Hypertension type: essential hypertension Tobacco dependence F17.200 Degenerative disc disease, lumbar M51.36 Simple chronic bronchitis J41.0 COPD type: chronic bronchitis Chronic bronchitis type: simple High cholesterol E78.00 Additional Codes MAGI-7 Assessment Billing - MAGI-7 Assessment Tool: MAGI-7 Assessment 31296 ([id number])
[2023-10-01 09:00] VITALS: BP 106/63; O2SAT 94
== END 2023-10-01 12:42 | disposition home or self-care (01) ==
LOC: HO.HMGH 08:57
PROVIDERS: PCP Physician Assistant; Visit Provider Physician Assistant
DX: D50.8 Other iron deficiency anemias (principal); I10 Essential (primary) hypertension; F17.200 Nicotine dependence, unspecified, uncomplicated; M51.36 Other intervertebral disc degeneration, lumbar region; J41.0 Simple chronic bronchitis; E78.00 Pure hypercholesterolemia, unspecified
CPT/HCPCS: 99442

== ENCOUNTER → 2023-10-14 13:05 | Outpatient (BNV) | payer MEDICARE, SELFPAY | PROVIDERS: PCP Physician Assistant; Visit Provider Internal Medicine | DX: D50.9 Iron deficiency anemia, unspecified (principal) | CPT/HCPCS: 99214; G2211 ==

== ENCOUNTER 2023-10-14 15:02 | Outpatient (AMB) | payer MEDICARE, SELFPAY ==
[2023-10-14 15:12] VITALS: BP 124/78; PULSE 73; O2SAT 94
--- NOTE | 2023-10-14 15:12 | MHC.OFFVIS ---
Vital Signs 10/14/23 15:12 Height 5 ft 1 in BP 124/78 Blood Pressure Location Lt brachial Position Sitting Pulse 73 Pulse Source Pulse Oximeter Pulse Oximetry (%) 94 Oxygen Delivery Method Nasal Cannula Oxygen Flow Rate 1 Intake Visit Reasons: hh f/u Intake Note: pt is here for ER follow up and is still fatigued, her hgb is now at 8.7 from 7. short of breath with exertion. Retinal Angiographer Required: No Allergies erythromycin base Allergy (Severe, Verified 10/14/23 15:49) Rash azithromycin Adverse Reaction (Severe, Verified 10/14/23 15:49) Nausea omeprazole Adverse Reaction (Intermediate, Verified 10/14/23 15:49) balance issues / dizziness Medication List - Last Reconciled 10/14/23 by Sherley Mancini MD carisoprodol (Soma) 350 mg PO TID PRN 30 days cetirizine (Zyrtec) 10 mg PO DAILY ferrous sulfate 220 mg (5 mL) PO DAILY 30 days lisinopril 20 mg PO DAILY 90 days simvastatin 40 mg PO QPM Ventolin HFA 90 mcg/actuation (albuterol sulfate) 2 puffs inhalation Q4-6H PRN NS Do you need a note to return to daycare/school/sports/work: No HPI HPI hh f/u: Details: This 78 years old female who is normally followed up by me for her COPD. She uses O2 2 L/minute and Ventolin 2 puffs Q 4-6 hours p.r.n. ( which she uses only occasionally ) Comes today for an urgent visit because she was seen in the emergency room 2 weeks ago with increased shortness of breath, and it was due to anemia, hemoglobin down to 7 g. She was transfused with 1 unit of pack cells hemoglobin has improved to 8 g. She had declined to undergo any further workup such as colonoscopy or endoscopy. But did agree to see belt operator for treatment of anemia. She has seen Dr. Barrow today before she came to my office . As she does not tolerate the oral perhaps of iron, Dr. Barrow has recommended to have iron transfusions at weekly intervals, to which she has agreed. She complains of swelling of the legs. She is wondering if anything more needs to be done for her pulmonary status. [facility] Medical History Hiatal hernia Oxygen dependent AAA (abdominal aortic aneurysm) Anxiety Neck pain HTN (hypertension) Smoker Allergic rhinitis High cholesterol Intertrigo Epidermal cyst Exercise hypoxemia COPD (chronic obstructive pulmonary disease) Surgical History History of esophagogastroduodenoscopy (EGD) Hx of colonoscopy History of bilateral cataract extraction History of hemorrhoidectomy Family History Father Stroke Mother Stroke Brother Colon cancer Sister Diabetes High cholesterol Social History Household Members: None Housing: House Are you a primary manager urgent care to a significant other at home: No Do you presently have visiting nurse or other home services: No Alcohol intake: never Patient Tobacco Use Status: Current everyday Tobacco user Tobacco use type: Cigarette Cigarette Packs Per Day: 0.5 Years Smoked: ~ 50 e-Cigarette/Vaping Use: Never Used Second Hand Smoke Exposure: No Advance Directives Date on File: 03/29/20 service: No Current occupational status: disabled Cognitive needs: No Hearing needs: Yes (bilateral hearing loss) Vision needs: No Review of Systems Const All systems reviewed & are unremarkable except as noted in HPI and below Eyes Reports no additional complaints ENT Reports nasal congestion (Mild intermittent) and Reports nasal discharge Card Reports no additional complaints Resp Reports as per HPI GI Reports no additional complaints Reports no additional complaints Musc Reports back pain (Mild chronic) Skin/Breast Reports system reviewed and no additional complaints, except as documented Neuro Reports no additional complaints Psych Reports no additional complaints Physical Exam Vital Signs: Last Vital Signs Pulse 73 10/14/23 15:12 BP 124/78 10/14/23 15:12 Pulse Ox 94 10/14/23 15:12 Oxygen Delivery Method Nasal Cannula 10/14/23 15:12 Oxygen Flow Rate 1 10/14/23 15:12 Const General: comfortable, no acute distress, alert and awake Orientation/consciousness: patient oriented x3 HEENT Head: Yes normal to inspection General nose exam: No nasal polyps present and No nasal discharge present Face and sinus: Yes sinuses nontender Mouth: oropharynx normal Throat: Yes posterior oropharynx normal Eyes General: appearance normal, both eyes and all related structures Neck Neck: Yes normal visual inspection, Yes no lymphadenopathy, Yes trachea midline and Yes no JVD Thyroid: Thyroid normal Chest Chest palpation & inspection: normal inspection of the chest, normal palpation of entire chest wall and no tenderness Resp Other: Percussion note resonant, breath sounds are distant but equal on both sides. No wheezes rhonchi or crepitations are heard on either side. Cardio Palpation: normal PMI Rate: regular rate Rhythm: regular rhythm Heart sounds: no gallops and no murmurs GI Palpation (GI): Soft to palpation, nontender, No hepatosplenomegaly present and no masses Auscultation: normal bowel sounds Back/Spine/Pelvis Thoracic/Lumbar Spine: thoracic and lumbar spine normal to inspection and thoraco-lumbar ROM limited Skin General skin exam: no rashes or lesions noted Neuro General: patient oriented x3 and no focal motor deficits Cranial nerves: Yes CN's II-XII intact bilaterally Extrem General: Yes normal to inspection, Yes no calf tenderness and Yes edema (1 + edema around the ankles .) Psych Appearance: grossly normal and well kempt Speech and movement: Normal speech and movement present Assessment & Plan Assessment & Plan (1) Smoker: Comment: SHE IS A [employer] SMOKER, UNABLE TO QUIT COMPLETELY , STILL SMOKED 10 CIGARETTES A DAY. DOES NOT WANT TO GO FOR ANNUAL SCREENING , SHE DOESN NOT WANT ANY ACTIVE TREATMENT EVEN IF SHE HAS CANCER . SAYS DON,T WASTE YOUR TIME IN COUNSELLING ME Code(s): F17.200 - Nicotine dependence, unspecified, uncomplicated Category: Social Hx Plan: as above (2) Allergic rhinitis: Comment: SHE HAS CHRONIC SEASONAL RHINITIS WHICH FLARES UP EVERY NOW AND THEN. Code(s): J30.9 - Allergic rhinitis, unspecified Category: Medical Plan: OK to use cetirizine 10 mg or loratadine 10 mg once a day p.r.n. for nasal congestion (3) COPD (chronic obstructive pulmonary disease): Comment: COPD, MODERATELY SEVERE , STABLE , AND WELL CONTROLLED. Code(s): J44.9 - Chronic obstructive pulmonary disease, unspecified Category: Medical Qualifiers: COPD type: chronic bronchitis Chronic bronchitis type: simple Qualified Code(s): J41.0 - Simple chronic bronchitis Plan: Ventolin HFA 2 puffs Q 4-6 hours p.r.n. She does not want to use any long-acting or stronger inhalers (4) Exercise hypoxemia: Comment: SHE HAS DOCUMENTED HYPOXEMIA ON WALKING. SHE DOES WELL WITH THE OXYGEN SUPPLEMENTATION. Code(s): R09.02 - Hypoxemia Category: Medical Plan: Continue to use O2 2 L/minute with any physical exertion or exercise (5) Iron deficiency anemia: Comment: Because she had increase in shortness of breath on minimal walking she was seen in the emergency room. And found to be anemic. She was told that she has iron-deficiency anemia. Code(s): D50.9 - Iron deficiency anemia, unspecified Category: Medical Qualifiers: Iron deficiency anemia type: inadequate dietary iron intake Qualified Code(s): D50.8 - Other iron deficiency anemias Plan: I explained to her that her anemia is due to iron-deficiency and most likely due to low grade internal bleeding. As noted above she has declined to undergo any active workup . She has agreed to be treated with iron supplements. She is not able to tolerate any. Oral perhaps of iron She has seen Dr. Hugo, who plans to treat her with iron transfusions. Patient was having a debate about whether she should go for the iron transfusions are not. I have explained to the patient and her daughter that it is important to be treated with iron supplementation to treat the anemia. She is agreeable to accept the RN transfusions. Coding Level of Care Code Est Pt Level 4 (05246) Diagnoses Smoker F17.200 Allergic rhinitis J30.9 Simple chronic bronchitis J41.0 COPD type: chronic bronchitis Chronic bronchitis type: simple Exercise hypoxemia R09.02 Iron deficiency anemia secondary to inadequate dietary iron intake D50.8 Iron deficiency anemia type: inadequate dietary iron intake
== END 2023-10-14 16:01 | disposition home or self-care (01) ==
PROVIDERS: PCP Physician Assistant; Visit Provider Internal Medicine
DX: F17.200 Nicotine dependence, unspecified, uncomplicated (principal); J30.9 Allergic rhinitis, unspecified; J41.0 Simple chronic bronchitis; R09.02 Hypoxemia; D50.8 Other iron deficiency anemias
CPT/HCPCS: 99214

== ENCOUNTER → 2023-10-14 15:02 | Outpatient (BNVA) | payer MEDICARE, SELFPAY | PROVIDERS: PCP Physician Assistant; Visit Provider Internal Medicine | DX: J30.9 Allergic rhinitis, unspecified (principal); J41.0 Simple chronic bronchitis; R09.02 Hypoxemia; D50.8 Other iron deficiency anemias; F17.210 Nicotine dependence, cigarettes, uncomplicated | CPT/HCPCS: 99212 ==

== ENCOUNTER 2023-11-03 11:42 | Outpatient (AMB) | payer MEDICARE, SELFPAY ==
--- NOTE | 2023-11-03 11:39 | A.OFFPC_ITS ---
Intake Visit Reasons: discuss the medication Ferrous Sulfate Web Content & Social Media Manager Required: No Information Interpreted: non-clinical & clinical Vehicle Operator Technician: Not Required per policy Accompanied by: Self / Same As Patient Allergies erythromycin base Allergy (Severe, Verified 11/03/23 12:15) Rash azithromycin Adverse Reaction (Severe, Verified 11/03/23 12:15) Nausea omeprazole Adverse Reaction (Intermediate, Verified 11/03/23 12:15) balance issues / dizziness Medication List - Last Reconciled 11/03/23 by Michael Curiel PA-C carisoprodol (Soma) 350 mg PO TID PRN 30 days cetirizine (Zyrtec) 10 mg PO DAILY cyanocobalamin (vitamin B-12) 500 mcg (2 x 250 mcg) PO DAILY ferrous sulfate 220 mg (5 mL) PO DAILY 30 days lisinopril 20 mg PO DAILY 90 days simvastatin 40 mg PO QPM Ventolin HFA 90 mcg/actuation (albuterol sulfate) 2 puffs inhalation Q4-6H PRN NS Tobacco use date assessed: 06/23/23 Fall risk assessment: No Falls in past year Last assessed Fall Risk: 11/03/23 Dental Screening Dental Screen Date: 06/23/23 HPI discuss the medication Ferrous Sulfate HPI Details Patient is a 78-year-old female being evaluated today via telephone only. At last telehealth appointment we discussed patient's recent anemia to which she was recently seen at the ER for did receive blood transfusion. We started liquid iron elix though patient has not been able to tolerate this medication due to constipation and feeling dizzy. She ultimately does not want to undergo a colonoscopy or endoscopy. She does have upcoming appointment with Hematology. PLAN: Will transition her to iron tablets, she promises to try to do increase iron rich foods in her diet. Laboratory Tests 09/28/23 10/14/23 13:12 14:11 Hgb 7.0 L* 8.7 L D PFSH Medical History Hiatal hernia Oxygen dependent AAA (abdominal aortic aneurysm) Anxiety Neck pain HTN (hypertension) Smoker Allergic rhinitis High cholesterol Intertrigo Epidermal cyst Exercise hypoxemia COPD (chronic obstructive pulmonary disease) Surgical History History of esophagogastroduodenoscopy (EGD) Hx of colonoscopy History of bilateral cataract extraction History of hemorrhoidectomy Family History Father Stroke Mother Stroke Brother Colon cancer Sister Diabetes High cholesterol Social History Household Members: None Housing: House Are you a primary multi care technician to a significant other at home: No Do you presently have visiting nurse or other home services: No Alcohol intake: never Patient Tobacco Use Status: Current everyday Tobacco user Tobacco use type: Cigarette Cigarette Packs Per Day: 0.5 Years Smoked: ~ 50 Packs Per Year: 0 e-Cigarette/Vaping Use: Never Used Second Hand Smoke Exposure: No Advance Directives Date on File: 03/29/20 service: No Current occupational status: disabled Cognitive needs: No Hearing needs: Yes (bilateral hearing loss) Vision needs: No Questionnaire Thrive Questionnaire Date Thrive assessed: 06/23/23 MAGI-7 AMB Questionnaire MAGI-7 Date MAGI - 7 assessed: 06/23/23 Source: Developed by Drs. Holland Wisdom, Arelis Carter, Caleb Cabrales and colleagues, with an educational celso from [employer]. Review of Systems Const Denies headache(s) Eyes Denies loss of vision ENT Denies vertigo, Denies dizziness, Denies headache(s) and Denies sore throat Card Denies chest pain, Denies leg edema and Denies lightheadedness Resp Denies cough, Denies hemoptysis and Denies wheezing GI Denies abdominal pain, Denies melena, Denies constipation, Denies diarrhea and Denies vomiting Denies urinary frequency, Denies dysuria and Denies urinary urgency Musc Denies arthralgias, Denies joint swelling, Denies numbness and Denies tingling Neuro Denies behavioral changes, Denies vertigo, Denies dizziness, Denies headache(s), Denies loss of vision, Denies memory loss, Denies numbness and Denies tingling Psych Denies anxiety, Denies behavioral changes, Denies depression, Denies memory loss and Denies panic attacks Jorge Luis/Lymph Denies easy bleeding and Denies easy bruising Aller/Immun Denies wheezing Physical exam (Primary Care) Tobacco/Smoking Status: Tobacco use Status Tobacco use date assessed 06/23/23 11/03/23 11:39 Patient Tobacco Use Status Current everyday Tobacco 11/03/23 11:39 Tobacco use type Cigarette 11/03/23 11:39 e-Cigarette/Vaping Use Never Used 11/03/23 11:39 Thrive Assessment: Date of Thrive Assessment Date Thrive assessed 06/23/23 11/03/23 11:39 Telehealth Telehealth Telehealth Platform: Telephone Location of provider rendering services: practice address Location of patient: address on file Patient Identification confirmed using: Name, : Yes Telehealth method: voice only Patient verbally consented to treatment: Yes Patient verbally consented to billing insurance company: Yes Patient informed of any privacy concerns related to visit: Yes Minutes spent on Phone/Video with Pt.: 11 Assessment and Plan Assessment & Plan (1) Iron deficiency anemia: Comment: Because she had increase in shortness of breath on minimal walking she was seen in the emergency room. And found to be anemic. She was told that she has iron-deficiency anemia. Code(s): D50.9 - Iron deficiency anemia, unspecified Qualifiers: Iron deficiency anemia type: inadequate dietary iron intake Qualified Code(s): D50.8 - Other iron deficiency anemias Plan: Was found to have significant anemia, was seen at the ER and did get a blood transfusion. She has tried iron liquid elix though had intolerable side effects. She is willing to try iron tablets. Will recheck her CBC and iron studies. Has upcoming appointment with Hematology in December. Ultimately she does not want any invasive procedures to evaluate for GI bleed. At this point she is apprehensive on doing anymore blood transfusions. WILL TRY TO DO HER BEST WITH IRON RICH FOODS AND IRON SUPPLEMENTATION Orders: Orders IRON PROFILE 11/03/23 D50.8 - Other iron deficiency anemias, D50.9 - Iron deficiency anemia, unspecified Complete Blood Count no Diff 11/03/23 D50.8 - Other iron deficiency anemias Medications: New ferrous sulfate 325 mg PO BID 60 tabs 1RF 30 days D50.8 - Other iron deficiency anemias, D50.9 - Iron deficiency anemia, unspecified Discontinued ferrous sulfate Discontinued Reason: Doctor's Order 220 mg (5 mL) PO DAILY 30 days 150 mL 3RF D50.8 - Other iron deficiency anemias Coding Level of Care Code Tele [facility] Pt Level 3 (22040) Diagnoses Iron deficiency anemia secondary to inadequate dietary iron intake D50.8 Iron deficiency anemia type: inadequate dietary iron intake
== END 2023-11-03 14:03 | disposition home or self-care (01) ==
LOC: HO.HMCH 11:42
PROVIDERS: PCP Physician Assistant; Visit Provider Physician Assistant
DX: D50.8 Other iron deficiency anemias (principal)

== ENCOUNTER → 2023-11-03 11:42 | Outpatient (BNVA) | payer MEDICARE, SELFPAY | PROVIDERS: PCP Physician Assistant; Visit Provider Physician Assistant ==

== ENCOUNTER 2023-12-02 09:49 | Outpatient (AMB) | payer MEDICARE, SELFPAY ==
--- NOTE | 2023-12-02 09:47 | MHC.PC.OV ---
Vital Signs 12/02/23 10:03 Weight 150 lb Pulse 74 Intake Visit Reasons: f/u anemia Analytical Data Miner Required: No Information Interpreted: non-clinical & clinical Special Librarian: Not Required per policy Accompanied by: Self / Same As Patient Allergies erythromycin base Allergy (Severe, Verified 12/02/23 10:00) Rash azithromycin Adverse Reaction (Severe, Verified 12/02/23 10:00) Nausea omeprazole Adverse Reaction (Intermediate, Verified 12/02/23 10:00) balance issues / dizziness Medication List - Last Reconciled 12/02/23 by Michael Curiel PA-C carisoprodol (Soma) 350 mg PO TID PRN 30 days cetirizine (Zyrtec) 10 mg PO DAILY cyanocobalamin (vitamin B-12) 500 mcg (2 x 250 mcg) PO DAILY ferrous sulfate 325 mg PO BID 30 days lisinopril 20 mg PO DAILY 90 days simvastatin 40 mg PO QPM Ventolin HFA 90 mcg/actuation (albuterol sulfate) 2 puffs inhalation Q4-6H PRN NS Tobacco use date assessed: 06/23/23 Dental Screening Dental Screen Date: 06/23/23 HPI f/u anemia HPI Details Patient is a 78-year-old female being evaluated today via telephone only. At last telehealth appointment we discussed patient's recent anemia to which she was recently seen at the ER for did receive blood transfusion. We started liquid iron elix though patient has not been able to tolerate this medication due to constipation and feeling dizzy. We also prescribed her iron tablets though she is adamant about not taking iron as she is concerned about side effects. She ultimately does not want to undergo a colonoscopy or endoscopy. She does have upcoming appointment with Hematology that she mentioned she will cancel. [facility] Medical History Hiatal hernia Oxygen dependent AAA (abdominal aortic aneurysm) Anxiety Neck pain HTN (hypertension) Smoker Allergic rhinitis High cholesterol Intertrigo Epidermal cyst Exercise hypoxemia COPD (chronic obstructive pulmonary disease) Surgical History History of esophagogastroduodenoscopy (EGD) Hx of colonoscopy History of bilateral cataract extraction History of hemorrhoidectomy Family History Father Stroke Mother Stroke Brother Colon cancer Sister Diabetes High cholesterol Social History Household Members: None Housing: House Are you a primary acute care certified nursing assistant to a significant other at home: No Do you presently have visiting nurse or other home services: No Alcohol intake: never Patient Tobacco Use Status: Current everyday Tobacco user Tobacco use type: Cigarette Cigarette Packs Per Day: 0.5 Years Smoked: ~ 50 e-Cigarette/Vaping Use: Never Used Second Hand Smoke Exposure: No Advance Directives Date on File: 03/29/20 service: No Current occupational status: disabled Cognitive needs: No Hearing needs: Yes (bilateral hearing loss) Vision needs: No Questionnaire Thrive Questionnaire Date Thrive assessed: 06/23/23 MAGI-7 AMB Questionnaire MAGI-7 Date MAGI - 7 assessed: 06/23/23 Source: Developed by Drs. Holland Wisdom, Arelis Carter, Caleb Cabrales and colleagues, with an educational celso from [employer]. Review of Systems Const Denies headache(s) Eyes Denies loss of vision ENT Denies vertigo, Denies dizziness, Denies headache(s) and Denies sore throat Card Denies chest pain, Denies leg edema and Denies lightheadedness Resp Denies cough, Denies hemoptysis and Denies wheezing GI Denies abdominal pain, Denies melena, Denies constipation, Denies diarrhea and Denies vomiting Denies urinary frequency, Denies dysuria and Denies urinary urgency Musc Denies arthralgias, Denies joint swelling, Denies numbness and Denies tingling Neuro Denies behavioral changes, Denies vertigo, Denies dizziness, Denies headache(s), Denies loss of vision, Denies memory loss, Denies numbness and Denies tingling Psych Denies anxiety, Denies behavioral changes, Denies depression, Denies memory loss and Denies panic attacks Jorge Luis/Lymph Denies easy bleeding and Denies easy bruising Aller/Immun Denies wheezing Physical exam (Primary Care) Vital Signs: Last Vital Signs Pulse 74 12/02/23 10:03 Tobacco/Smoking Status: Tobacco use Status Tobacco use date assessed 06/23/23 12/02/23 09:48 Patient Tobacco Use Status Current everyday Tobacco 10/22/24 09:48 Tobacco use type Cigarette 12/02/23 09:48 e-Cigarette/Vaping Use Never Used 12/02/23 09:48 Thrive Assessment: Date of Thrive Assessment Date Thrive assessed 06/23/23 12/02/23 09:48 Telehealth Telehealth Telehealth Platform: Telephone Location of provider rendering services: practice address Location of patient: address on file Patient Identification confirmed using: Name, : Yes Telehealth method: voice only Patient verbally consented to treatment: Yes Patient verbally consented to billing insurance company: Yes Patient informed of any privacy concerns related to visit: Yes Minutes spent on Phone/Video with Pt.: 11 Coding Level of Care Code Tele Est Pt Level 3 (51263) Diagnoses Iron deficiency anemia secondary to inadequate dietary iron intake D50.8 Iron deficiency anemia type: inadequate dietary iron intake Essential hypertension I10 Hypertension type: essential hypertension Simple chronic bronchitis J41.0 COPD type: chronic bronchitis Chronic bronchitis type: simple Tobacco dependence F17.200 Assessment & Plan Assessment & Plan (1) Iron deficiency anemia: Comment: Because she had increase in shortness of breath on minimal walking she was seen in the emergency room. And found to be anemic. She was told that she has iron-deficiency anemia. Code(s): D50.9 - Iron deficiency anemia, unspecified Category: Medical Qualifiers: Iron deficiency anemia type: inadequate dietary iron intake Qualified Code(s): D50.8 - Other iron deficiency anemias Plan: As per HPI patient has pretty significant anemia. I have concerned about a GI etiology for her anemia though patient is not interested in colonoscopy or endoscopy. We have tried liquid iron though had side effects. She is not interested in iron tablets. Will continue to follow CBC to ensure at least stable and patient is okay with this. SHE DOES REITERATE TO ME THAT SHE IS A DNR (2) HTN (hypertension): Code(s): I10 - Essential (primary) hypertension Category: Medical Qualifiers: Hypertension type: essential hypertension Qualified Code(s): I10 - Essential (primary) hypertension Plan: Patient reports a blood pressure of 126/64 today. She will continue on current antihypertensive medication with goal blood pressure to remain below 140/90 (3) COPD (chronic obstructive pulmonary disease): Comment: COPD, MODERATELY SEVERE , STABLE , AND WELL CONTROLLED. Code(s): J44.9 - Chronic obstructive pulmonary disease, unspecified Category: Medical Qualifiers: COPD type: chronic bronchitis Chronic bronchitis type: simple Qualified Code(s): J41.0 - Simple chronic bronchitis Plan: Unfortunately continues to continue smoke. She reports her breathing has been so-so . She does have access to her rescue inhaler which has been helpful. Not interested in quitting smoking at this time (4) Tobacco dependence: Code(s): F17.200 - Nicotine dependence, unspecified, uncomplicated Category: Medical Plan: As above patient on interested in quitting smoking at this time.
[2023-12-02 10:03] VITALS: PULSE 74
== END 2023-12-02 10:33 | disposition home or self-care (01) ==
LOC: HO.HMCH 09:49
PROVIDERS: PCP Physician Assistant; Visit Provider Physician Assistant
DX: D50.8 Other iron deficiency anemias (principal); J41.0 Simple chronic bronchitis; I10 Essential (primary) hypertension; F17.200 Nicotine dependence, unspecified, uncomplicated

== ENCOUNTER → 2023-12-02 09:49 | Outpatient (BNVA) | payer MEDICARE, SELFPAY | PROVIDERS: PCP Physician Assistant; Visit Provider Physician Assistant ==